=== PATIENT | female | born 1945 | race Caucasian/White ===

== ENCOUNTER 2017-10-04 13:28 | Inpatient (IN) | payer MEDICARE ==
[~2017-10-04] VITALS: Ht 154.9 cm; Wt 64.0 kg
[~2017-10-04 13:28] MED LIST: TENORMIN25 MG PO; TRAMADOL HCL50 MG PO
--- NOTE | 2017-10-04 13:56 | NUR ---
DISCUSSED W/MD REGARDING PT DEFICIT AND HX CVA. MD ADVISED THAT CHANGES ARE THREE DAYS OLD AND PT IS IMPROVING SO NO STROKE ALERT BUT PT TO HAVE CT.
[2017-10-04 13:57] LABS: HEMATOCRIT 35.5 % (37.0-47.0); HEMOGLOBIN 11.7 g/dl (12.0-16.0); IMMATURE GRANULOCYTES 0.6 % (0.0-1.0); MEAN CELL VOLUME 103.5 fL CALC (80.0-100.0); MEAN CORPUSCULAR HGB 34.1 pG CALC (26.0-32.0); NEUT# 9.29 thou/uL (2.00-7.15); RED BLOOD COUNT 3.43 mill/uL (4.20-5.60); RED CELL DISTRI WIDTH 16.9 % (11.5-15.5)
[2017-10-04 14:13] LABS: PROTHROMBIN TIME 11.4 SECONDS (9.0-12.5)
[2017-10-04 14:17] LABS: ALBUMIN 3.5 g/dL (3.2-5.0); BILIRUBIN, TOTAL 1.5 mg/dL (0.0-1.4); CREATININE 1.1 mg/dL (0.5-1.0); POTASSIUM 3.9 mmol/l (3.5-5.1); TOTAL PROTEIN 6.7 g/dL (6.3-8.2)
--- NOTE | 2017-10-04 14:46 | NUR ---
MD AT BEDSIDE DISCUSSING PLAN OF CARE W/PT.
--- NOTE | 2017-10-04 15:30 | NUR ---
BEDRESTING. AWAITING ADMISSION
--- NOTE | 2017-10-04 15:47 | NUR ---
[facility] RESULT IS BASED ON PRIOR RESULTS FROM CVA IN 06/2016 PER PT.
--- NOTE | 2017-10-04 16:50 | NUR ---
ASSISTED PT W/REPOSITIONING. CAP REFILL <3 SEC TO TOES ON RIGHT FOOT. COOLEY BOOT IN PLACE.
[2017-10-04 17:02] LABS: URINE BILIRUBIN - DIPSTICK SMALL (NEGATIVE); URINE BLOOD DIPSTICK TRACE-LYSED (NEGATIVE); URINE CLARITY CLOUDY; URINE COLOR YELLOW; URINE GLUCOSE - DIPSTICK NEGATIVE (NEGATIVE); URINE KETONE TRACE mg/dL (NEGATIVE); URINE LEUK ESTERASE LARGE (NEGATIVE); URINE NITRITE - DIPSTICK NEGATIVE (Negative); URINE PROTEIN - DIPSTICK NEGATIVE (NEG-TRACE); URINE SPECIFIC GRAVITY <=1.005
[2017-10-04 17:15] LABS: URINE BACTERIA MANY hpf; URINE SQUAMOUS EPITHELIAL CELL FEW EPI/hpf (0-FEW); URINE WBC TNTC WBC/hpf (0-5)
--- NOTE | 2017-10-04 17:34 | NUR ---
DR ROMERO IN TO SEE PT. REPORT PROVIDED TO DIANA LAURA, ON MEDSURG. PT TO MEDSURG VIA STRETCHER IN STABLE CONDITION. IV SITE HEALTHY.
--- NOTE | 2017-10-04 17:45 | NUR ---
PT ARRIVED TO FLOOR VIA STRETCHER ACCOMPANIED BY DIANA DIXON. PT TRANSFERED TO BED VIA PULL-OVER BY STAFF X 2. ORTHOPEDIC BOOT TO RIGHT FOOT. RIGHT ARM FLACID. FALL PRECAUTIONS REINFORCED. PT STATES UNDERSTANDING. EXPRESSIVE APHASIA AT TIMES. WORD FINDING DIFFICULTY. FORGETFUL. BED ALARM SET FOR SAFETY. PLAN OF CARE DISCUSSED. CALL LIGHT REVIEWED AND IN REACH. PT STATES UNDERSTANDING.
[2017-10-04 18:16] VITALS: BP 141/74
--- NOTE | 2017-10-04 18:21 | NUR ---
CONSULT CALLED TO DR. MONTEZ.
[2017-10-04 18:30] VITALS: BP 128/77
--- NOTE | 2017-10-04 19:00 | NUR ---
PT RESTING IN BED WATHING TV. PT IS ALERT AND ORIENTED X3 WITH PERIODS OF CONFUSION. PERRLA. RESP ARE EVEN AND UNLABORED. NO DISTRESS NOTED. LUNGS ARE CLEAR. HR REGULAR. PULSES PALPABLE THROUGHOUT. NO EDEMA NOTED. BOOT TO RLE. BS ACTIVE. #20 LAC SALINE LOCKED. NO REDNESS OR EDEMA NOTED. CALL LIGHT IN REACH. BED ALARM ON DUE TO PERIODS OF CONFUSION. RIGHT SIDED HEMIPARESIS NOTED FROM HX OF CVA. WILL CONTINUE TO MONITOR.
--- NOTE | 2017-10-04 19:57 | NUR ---
ANU APPLIED R/T IMMOBILITY AND SKIN PROTECTION.
--- NOTE | 2017-10-04 21:25 | NUR ---
PT TO RADIOLOGY FOR CT VIA WC ACCOMPANIOED BY EDGE GRINDER MACHINE
--- NOTE | 2017-10-04 22:55 | NUR ---
PT RETURNED FROM CT VIA WC. PT ASSISTED BACK TO BED. WILL CONTINUE TO MONITOR
--- NOTE | 2017-10-05 | NUR ---
PT SITTING UP IN BED WATCHING TV. RESP ARE EVEN AND UNLABORED. NO DISTRESS NOTED. CALL LIGHT IN REACH. BED ALARM ON. WILL CONTINUE TO MONITOR
--- NOTE | 2017-10-05 04:00 | NUR ---
PT RESTING IN BED WITH EYES CLOSED. AROUSES EASILY TO VERBAL STIMULI. RESP ARE EVEN AND UNLABORED. NO DISTRESS NOTED. CALL LIGHT IN REACH. BED ALARM ON. CALL LIGHT IN REACH.
[2017-10-05 04:30] VITALS: BP 100/60; BP 149/84
--- NOTE | 2017-10-05 04:30 | NUR ---
BINDER AND BOX BUILDER INTO ROOM TO COMPLETE AM LABS
[2017-10-05 05:20] LABS: HEMATOCRIT 36.6 % (37.0-47.0); HEMOGLOBIN 12.4 g/dl (12.0-16.0); MEAN CELL VOLUME 102.8 fL CALC (80.0-100.0); MEAN CORPUSCULAR HGB 34.8 pG CALC (26.0-32.0); MEAN CORPUSCULAR HGB CONC 33.9 g/L CALC (32.0-36.0); RED BLOOD COUNT 3.56 mill/uL (4.20-5.60); RED CELL DISTRI WIDTH 17.2 % (11.5-15.5)
--- NOTE | 2017-10-05 05:22 | NUR ---
PUREWICK EXTERNAL CATHETER CHANGED AT THIS TIME. DUE TO LARGE AMOUNT OF URINARY INCONTINENCE.
[2017-10-05 05:24] LABS: ANION GAP 15 (6-22 (CALC)); BUN 8 mg/dL (8-23); BUN/CREATININE RATIO 11 (12-20 (CALC)); CARBON DIOXIDE 30 mmol/l (22-30); CHLORIDE 95 mmol/l (95-108); CREATININE 0.7 mg/dL (0.5-1.0); GFR > 60 ML/MIN (>=60 (CALC)); GFR FOR AFR.AMER. > 60 ML/MIN (>=60 (CALC)); POTASSIUM 3.4 mmol/l (3.5-5.1); SODIUM 136 mmol/l (137-146)
--- NOTE | 2017-10-05 07:00 | NUR ---
BEDSIDE REPORT RECEIVED BY KD. PT IS RESTING IN BED WITH NO S/S OF DISTRESS NOTED. PT DENIES NEEDS AT THIS TIME. BEDALARM IN PLACE FOR SAFETY. CALL LIGHT IN REACH.
[2017-10-05 07:38] VITALS: BP 136/80
--- NOTE | 2017-10-05 08:01 | NUR ---
ASSESSMENT DONE PT IS A&O X3 AT THIS TIME. PT DENIES PAIN AT THIS TIME. NS 80ML/HR INFUSING WELL. PUREWICK [place]AS IS IN PLACE WITH YELLOW URINE. RIGHT ARM IS FLACID. BOOT TO RLE. SAFETY PRECAUTIONS REINFORCED AND CALL LIGHT IN REACH.
--- NOTE | 2017-10-05 12:10 | NUR ---
DR. LEAL AT BEDSIDE TO ASSESS PT AND APPLIED A DRESSING ON RIGHT LEG FOR SUPPORT.
--- NOTE | 2017-10-05 12:30 | NUR ---
APPLIED A NEW PURE ARCHIE D[place]AS DUE TO PT TOOK A SHOWER. PT DENIES PAIN AT THIS TIME. NO S/S OF DISTRESS NOTED. CALL LIGHT IN REACH.
[2017-10-05] MEDS ORDERED: LIPITOR10 M1 PO (15:33)
[2017-10-05] MEDS ORDERED: AMLODIPINE2.5 MG PO (15:34)
[2017-10-05] MEDS ORDERED: BACLOFEN10 MG PO (15:34)
[2017-10-05 16:31] VITALS: BP 139/85
--- NOTE | 2017-10-05 16:36 | NUR ---
MEDICATED PT WITH ULTRAM FOR PAIN ON RIGHT LEG 12/16 SEE EMAR. PT DENIES ANY OTHER NEEDS AT THIS TIME. SON IN ROOM. CALL LIGHT IN REACH.
--- NOTE | 2017-10-05 19:00 | NUR ---
PT SITTING UP IN BED WATCHING TV. PT IS ALERT AND ORIENTED X3. PERRLA.PLAN OF CARE REVIEWED WITH PATIENT. SHIFT ASSESSMENT COMPLETED AT THIS TIME. IV PATENT. CALL LIGHT IN REACH. BED ALARM IN PLACE FOR PERIODS OF CONFUSION. WILL CONTINUE TO MONITOR
[2017-10-05 19:10] VITALS: BP 133/77
--- NOTE | 2017-10-05 23:37 | NUR ---
PT RESTING IN BED WITH EYES CLOSED. RESP ARE EVEN AND UNLABORED.NO DISTRESS NOTED. BED ALARM ON. CALL LIGHT IN REACH. WILL CONTINUE TO MONITOR
[2017-10-05 23:50] VITALS: BP 126/63
[2017-10-06 03:20] VITALS: BP 137/77
--- NOTE | 2017-10-06 04:00 | NUR ---
PT RESTING IN BED WITH EYES CLOSED. RESP ARE EVEN AND UNLABORED. NO DISTRESS NOTED. CALL LIGHT IN REACH. WILL CONTINUE TO MONITOR
[2017-10-06 04:58] LABS: HEMATOCRIT 32.7 % (37.0-47.0); HEMOGLOBIN 10.6 g/dl (12.0-16.0); IMMATURE GRANULOCYTES 0.4 % (0.0-1.0); MEAN CELL VOLUME 105.8 fL CALC (80.0-100.0); MEAN CORPUSCULAR HGB 34.3 pG CALC (26.0-32.0); MEAN CORPUSCULAR HGB CONC 32.4 g/L CALC (32.0-36.0); NEUT# 4.22 thou/uL (2.00-7.15); RED BLOOD COUNT 3.09 mill/uL (4.20-5.60); RED CELL DISTRI WIDTH 17.5 % (11.5-15.5)
[2017-10-06 04:59] LABS: ANION GAP 12 (6-22 (CALC)); BUN 7 mg/dL (8-23); BUN/CREATININE RATIO 11 (12-20 (CALC)); CARBON DIOXIDE 27 mmol/l (22-30); CHLORIDE 99 mmol/l (95-108); CREATININE 0.7 mg/dL (0.5-1.0); GFR > 60 ML/MIN (>=60 (CALC)); GFR FOR AFR.AMER. > 60 ML/MIN (>=60 (CALC)); MAGNESIUM 1.3 mg/dL (1.6-2.3); POTASSIUM 3.7 mmol/l (3.5-5.1); SODIUM 135 mmol/l (137-146)
--- NOTE | 2017-10-06 07:33 | NUR ---
SHIFT CHANGE REPORT FROM MIAH, PT AWAKE ALERT AND ORIENTED, TELE MONITOR IN PLACE, DENIES PAIN AT THIS TIME, R.LEG STABILIZED IN CAST, PERIWICK CATHETER IN PLACE TO SUCTION, CALL HAYS IN REACH.
[2017-10-06 08:17] VITALS: BP 128/69
--- NOTE | 2017-10-06 12:34 | NUR ---
RESTING IN BED, USED BEDPAN EFFECTIVELY AFTER WICK REMOVED AND SATURATED LINENS CHANGED, MUSCLE RELAXER GIVEN REQUESTED BY PATIENT OND ORDERED BY MD, ALL NEEDS ADDRESSED, WILL CONTINUE TO MONITOR.
--- NOTE | 2017-10-06 15:00 | NUR ---
PT REFUSED SUPPOSITORY @ 1500 STATING SHE WILL HAVE IT LATER, WILL CONTINUE TO MONITOR, CALL HAYS IN REACH.
--- NOTE | 2017-10-06 15:57 | NUR ---
TRANSFERRED TO [facility] AT THIS TIME AND TRANSPORTED TO MRI BY STAFF.
--- NOTE | 2017-10-06 16:01 | NUR ---
Pt seen this pm (1430) for treatment. She was alert and cooperative. PROM to R extremities except ankle secondary to fx. Pt moved supine to sit with max assist x1. Sitting balance was good, LAQ to LLE and P/AA knee ext on R. Passive stretch to L heel cord. Pt returned to supine with max assist and max assist x2 to move up in bed. Pt positioned properly with call cruz/bed tray in reach, NEUROPSYCHOLOGY SERVICE DIRECTOR with pt.
[2017-10-06 16:14] VITALS: BP 138/62
--- NOTE | 2017-10-06 17:50 | NUR ---
BACK TO UNIT FROM MRI AND SETTLED IN BED, REQUESTING H2O STATING SHE HAD BEEN ADVISED TO DRINK PLENTY DUE TO IV DYE FOR PROCEDURE, WATER IN REACH, WILL CONTINUE TO MONITOR.
--- NOTE | 2017-10-06 19:00 | NUR ---
PT TO RADIOLOGY VIA STRETCHER FOR ECHOCARDIOGRAM. ACCOMPANIED BY MARKETER.
--- NOTE | 2017-10-06 19:11 | NUR ---
PT RETURNED TO FLOOR VIA STRETCHER. PT REFUSED ECHOCADIOGRAM
--- NOTE | 2017-10-06 19:18 | NUR ---
PT TRANSPORTED OFF UNIT FOR PROCEDURE (ECHO) REFUSED STATING SHE HAS BEEN THROUGH ENOUGH TODAY AND WILL NOT TOLERATE ANOTHER 40 MINS FOR THIS PROCEDURE.
--- NOTE | 2017-10-06 19:30 | NUR ---
PT SITTING UP IN BED AWAKE WATCHING TV. PT IS ALERT AND ORIENTED X3. PERRLA. SHIFT ASSESSMENT COMPLETED AT THIS TIME. IV PATENT. PT STATES THAT SHE IS JUST EXHAUSTED AND THAT IS WHY SHE DID NOT WANT TO GET THE ECHO DOEN TONIGHT. DISCUSSED PLAN OF CARE WITH PT. PT VERBALIZED UNDERSTANDING. CALL LIGHT IN REACH. WILL CONTINUE TO MONITOR
[2017-10-06 19:40] VITALS: BP 136/87
--- NOTE | 2017-10-06 20:00 | NUR ---
IV site discontinued, cath intact. No edema , no redness, voices no discomfort.
--- NOTE | 2017-10-07 00:08 | NUR ---
PT RESTING IN BED WITH EYES CLOSED. RESP ARE EVEN AND UNLABORED. IV REMAINS PATENT. CALL LIGHT IN REACH. WILL CONTINUE TO MONITOR
[2017-10-07 03:41] VITALS: BP 128/79
--- NOTE | 2017-10-07 04:00 | NUR ---
PT RESTING IN BED WITH EYES CLOSED. RESP ARE EVEN AND UNLABORED. NO DISTRESS NOTED. CALL LIGHT IN REACH. WILL CONTINUE TO MONITOR
[2017-10-07 05:52] LABS: HEMATOCRIT 37.8 % (37.0-47.0); HEMOGLOBIN 12.2 g/dl (12.0-16.0); IMMATURE GRANULOCYTES 0.4 % (0.0-1.0); MEAN CELL VOLUME 106.2 fL CALC (80.0-100.0); MEAN CORPUSCULAR HGB 34.3 pG CALC (26.0-32.0); MEAN CORPUSCULAR HGB CONC 32.3 g/L CALC (32.0-36.0); NEUT# 4.46 thou/uL (2.00-7.15); RED BLOOD COUNT 3.56 mill/uL (4.20-5.60); RED CELL DISTRI WIDTH 17.2 % (11.5-15.5)
[2017-10-07 06:38] LABS: ANION GAP 12 (6-22 (CALC)); BUN 3 mg/dL (8-23); BUN/CREATININE RATIO 7 (12-20 (CALC)); CARBON DIOXIDE 28 mmol/l (22-30); CHLORIDE 98 mmol/l (95-108); CREATININE 0.5 mg/dL (0.5-1.0); GFR > 60 ML/MIN (>=60 (CALC)); GFR FOR AFR.AMER. > 60 ML/MIN (>=60 (CALC)); POTASSIUM 3.5 mmol/l (3.5-5.1); SODIUM 135 mmol/l (137-146)
--- NOTE | 2017-10-07 07:00 | NUR ---
SHIFT CHANGE FROM MIAH, PT AWAKE ALERT AND ORIENTED, ASSISTED WITH ELIMINATION, PAIN CONCERNS ADDRESSED, CALL HAYS IN REACH.
[2017-10-07 08:29] VITALS: BP 124/59
--- NOTE | 2017-10-07 12:01 | NUR ---
Pt refuse treatment today and stated she did not want to be bothered today at all.
[2017-10-07 12:04] VITALS: BP 133/7
--- NOTE | 2017-10-07 14:19 | NUR ---
RESTING IN BED AT THIS TIME. REPORTED IN SHIFT CHANGE THIS AM, PT CONFORMED SHE REFUSED ECHO SHE HAD HAD TOO MUCH WITH THE MRI AND COULD NOT TOLERATE ANOTHER PROCEDURE BUT STATED SHE WOULD HAVE IT DONE TODAY. SHE ALSO REFUSED PHYSICAL THERAPY TODAY
--- NOTE | 2017-10-07 15:58 | NUR ---
RESTING IN BED, REPORTED SHE HAD A GOOD AFTERNOON NAP AND FEELS MUCH BETTER AT THIS TIME, ALL NEEDS ADDRESSED, CALL HAYS IN REACH.
[2017-10-07 16:49] VITALS: BP 146/79
[2017-10-07 19:25] VITALS: BP 175/88
--- NOTE | 2017-10-07 19:40 | NUR ---
PT RESTING IN BED WATCHING TV. RESP EVEN AND UNLABORED. LUNGS CLEAR BILAT. TELE IN PLACE. ABD SOFT, ACTIVE BOWEL SOUNDS. RIGHT ANKLE CAST IN PLACE, POPLITEAL PULSE PALPATED. LEFT PEDAL PULSE PALPATED. PT REPOSITIONED FOR COMFORT. PT DENIES PAIN. IV LW REMOVED, NEW IV START BY THIS EVP MANAGING DIRECTOR #22 LAC. SAFETY PRECAUTIONS REINFORCED. PT INSTRUCTED TO BE NONWEIGHTBEARING. FREQUENT ROUNDS MADE. CALL LIGHT WITHIN REACH.
[2017-10-07 23:15] VITALS: BP 185/89
[2017-10-08] VITALS (7 sets, daily range): BP systolic 120–169; BP diastolic 62–84
--- NOTE | 2017-10-08 00:36 | NUR ---
PT WOKE FOR VITAL SIGNS. PT DENIES PAIN. RESP EVEN AND UNLABORED. TELE IN PALCE. CALL LIGHT WITHIN REACH.
--- NOTE | 2017-10-08 04:30 | NUR ---
PT AWAKE WATCHING TV. ASSESSMENT UNCHANGED; RESP EVEN AND UNLABORED. TELE IN PLACE. CALL LIGHT WITHIN REACH.
--- NOTE | 2017-10-08 07:00 | NUR ---
SHIFT CHANGE REPORT FROM JOHNSON BRADLEY AWAKE ALERT AND ORIENTED RESTING IN BED, NO C/O DISCOMFORT AT THIS TIME, CALL HAYS IN REACH.
--- NOTE | 2017-10-08 12:00 | NUR ---
RESTING IN BED, ASSISTED WITH ELIMINATION, PAIN CONCERNS ADDRESSED, CALL HAYS IN REACH.
--- NOTE | 2017-10-08 12:21 | NUR ---
HAVING MEAL AT THIS TIME, ALL NEEDS ADDRESSED, CALL HAYS IN REACH.
--- NOTE | 2017-10-08 16:00 | NUR ---
RELAXING WATCHING TV.
--- NOTE | 2017-10-08 20:20 | NUR ---
PT RESTING IN BED WATCHING TV. RESP EVEN AND UNLABORED. TELE IN PLACE. LUNGS CLEAR. ABD SOFT, ACTIVE BOWEL SOUNDS. RIGHT ANKLE CAST IN PLACE, POPLITEAL PULSE PALPATED, LEFT PEDAL PULSE PALPATED. IV LAC PATENT; FLUSHED WITHOUT DIFFICULTY. PLAN OF CARE DISCUSSED. PT INSTRUCTED TO BE NONWEIGHTBEARING. FREQUENT ROUNDS MADE, CALL LIGHT WITHIN REACH.
--- NOTE | 2017-10-09 00:20 | NUR ---
RESP EVEN AND UNLABORED, PT RESTING IN BED WATCHING TV. TELE IN PLACE. CALL LIGHT WITHIN REACH.
--- NOTE | 2017-10-09 04:00 | NUR ---
ASSESSMENT UNCHANGED; RESP EVEN AND UNLABORED. NO DISCOMFORT NOTED. TELE IN PALCE. CALL LIGHT WITHIN REACH.
[2017-10-09 05:15] VITALS: BP 138/78
[2017-10-09 07:39] VITALS: BP 157/71
--- NOTE | 2017-10-09 07:43 | NUR ---
REPORT RECEIVED FROM KOFI BRADLEY. PT SITTING UPRIGHT IN BED. REPORTS RIGHT LEG PAIN. ULTRAM PO ADMINISTERED. PLAN OF CARE DISCUSSED. UPCOMING SX REVIEWED. FALL PRECAUTIONS REINFORCED. CALL LIGHT REVIEWED AND IN REACH. PT STATES UNDERSTANDING.
[2017-10-09 12:00] VITALS: BP 148/76
--- NOTE | 2017-10-09 12:00 | NUR ---
PT SITTING UPRIGHT IN BED. EATING LUNCH. NO COMPLAINTS AT THIS TIME. REPORTS USE OF IS.
[2017-10-09 16:13] VITALS: BP 140/80
--- NOTE | 2017-10-09 16:17 | NUR ---
PT ASSISTED WITH BEDPAN FOR VOIDING. TOLERATED ACTIVITY WELL.
[2017-10-09 18:55] VITALS: BP 123/71
--- NOTE | 2017-10-09 19:21 | NUR ---
PT RESTING IN BED WATCHING TV. RESP EVEN AND UNLABORED. LUNGS CLEAR BILAT. PT ENCOURAGED TO USE INCENTIVE SPIROMETER, PT RETURNED DEMONSTRATION. TELE IN PALCE. ABD SOFT; HYPOACTIVE BOWEL SOUNDS. RIGHT ANKLE SOFT CAST CDI, POPLITEAL PULSE PALPATED. LEFT PEDAL PULSE PALPATED. PT REPOSITIONED FOR COMFORT. IV LAC PATENT; FLUSHED WITHOUT DIFFICULTY. PLAN OF CARE DISCUSSED. SAFETY PRECAUTIONS REINFORCED. FREQUENT ROUNDS MADE. CALL LIGHT WITHIN REACH.
[2017-10-10] VITALS: BP 160/79
--- NOTE | 2017-10-10 00:40 | NUR ---
PT SLEEPING WITH EYES CLOSED. RESP EVEN AND UNLABORED. TELE IN PALCE. CALL LIGHT WITHIN REACH.
--- NOTE | 2017-10-10 04:11 | NUR ---
ASSESSMENT UNCHANGED; PT RESTING IN BED WATCHING TV. RESP EVEN AND UNLABORED. PT REPOSITIONED FOR COMFORT. TELE ON. CALL LIGHT WITHIN REACH.
[2017-10-10 04:15] VITALS: BP 161/78
[2017-10-10 04:49] LABS: HEMATOCRIT 33.7 % (37.0-47.0); IMMATURE GRANULOCYTES 0.5 % (0.0-1.0); MEAN CORPUSCULAR HGB 34.6 pG CALC (26.0-32.0); MEAN CORPUSCULAR HGB CONC 32.6 g/L CALC (32.0-36.0); NEUT# 3.97 thou/uL (2.00-7.15); RED BLOOD COUNT 3.18 mill/uL (4.20-5.60); RED CELL DISTRI WIDTH 16.8 % (11.5-15.5)
[2017-10-10 05:03] LABS: ALKALINE PHOSPHATASE 137 u/l (38-126); BILIRUBIN, TOTAL 0.2 mg/dL (0.0-1.4); BUN 7 mg/dL (8-23); BUN/CREATININE RATIO 13 (12-20 (CALC)); CARBON DIOXIDE 31 mmol/l (22-30); CHLORIDE 96 mmol/l (95-108); CREATININE 0.5 mg/dL (0.5-1.0); GFR > 60 ML/MIN (>=60 (CALC)); GFR FOR AFR.AMER. > 60 ML/MIN (>=60 (CALC)); SGOT/AST 19 u/l (9-36); SGPT/ALT 23 u/l (11-66); SODIUM 136 mmol/l (137-146)
[2017-10-10 05:09] LABS: ANION GAP 14 (6-22 (CALC)); POTASSIUM 4.7 mmol/l (3.5-5.1)
[2017-10-10 05:10] LABS: ALBUMIN 2.4 g/dL (3.2-5.0); TOTAL PROTEIN 5.3 g/dL (6.3-8.2)
--- NOTE | 2017-10-10 07:00 | NUR ---
SHIFT CHANGE REPORT FROM IKRK, PT AWAKE ALERT AND ORIENTED, STATES SHE WANTS TO HAVE HER ECHO DONE TODAY SHE WILL NOT HAVE HER SURGERY TOMORROW IF ECHO NOT DONE. SHE WAS TAKEN OFF UNIT ON 10/07/17 FOR PROCEDURE BUT REFUSED WHEN SHE GOT THERE STATING IT WAS TOO MUCH AND SHE COULD NOT TOLERATE ANOTHER PROCEDURE THAT DAY. ORDER RENEWED AND WILL CONTINUE TO MONITOR, TELE MONITOR IN PLACE AND CALL HAYS IN REACH.
[2017-10-10 08:34] VITALS: BP 149/78
--- NOTE | 2017-10-10 11:41 | NUR ---
ASSISTED WITH ELIMINATION, OTHER NEEDS ADDRESSED, CALL HAYS IN REACH.
[2017-10-10 12:00] VITALS: BP 146/75
--- NOTE | 2017-10-10 12:35 | NUR ---
REFUSED PHYSICAL THERAPY TWICE TODAY FROM 2 DIFFERENT THERAPISTS STATING SHE HAS TO DO AN ECHO TODAY, ALL OTHER NEEDS ADDRESSED, CALL HAYS IN REACH.
--- NOTE | 2017-10-10 12:37 | NUR ---
Attempted treatment at 1230. She was eating lunch and stated she still had to go for test (echo) and she would not want to do anything today. Pt refuse PT at this time.
--- NOTE | 2017-10-10 15:21 | NUR ---
OFFERED MOM BUT REFUSED. ASSISTED WITH BLADDER ELIMINATION, KB-CARE DONE, BACK RUB GIVEN PARTIAL LINEN CHANGE DONE.
[2017-10-10 15:29] VITALS: BP 138/69
--- NOTE | 2017-10-10 15:54 | NUR ---
ATTEMPTED TO TREAT PATIENT LATE THIS AM. SHE STATED THAT SHE HAD JUST HAD HER MUSCLE RELAER MEDICATION AND DID NOT WISH TO BEGIN ANY EXERCISES. SHE IS SCHEDULED TO HAVE SURGERY TOMORROW AND PREFERS TO BE LEFT ALONE TODAY. DISCUSSED THE IMPORTANCE OF MAINTAINING/INCREASING STRENGTH OF LEFT EXTREMITY FOR MAXIMAL REHAB POTENTIAL. PATIENT EXPRESSES UNDERSTANDING OF SAME.
--- NOTE | 2017-10-10 17:35 | NUR ---
TRANSFERRED TO STRETCHER AND DOWN FOR ECHO AT THIS TIME.
--- NOTE | 2017-10-10 18:41 | NUR ---
JUST RETURNED FROM PROCEDURE VIA STRETCHER AND TRANSFERRED TO BED, CALL HAYS IN REACH.
[2017-10-10 19:30] VITALS: BP 153/82
--- NOTE | 2017-10-10 21:00 | NUR ---
PATIENT RESTING IN BED-AWAKE ALERT AND ORIENTEDX3. PATIENT LEFT AC IV SITE LEAKING-SITE D/C'ED WITH CATH INTACT. NEW IV SITE STARTED TO LEFT FOREARM-#22 GAUGE WITH GOOD BLOOD RETURN. PATIENT WITH SPLINT TO RIGHT LE. TOES ARE WARM TO TOUCH. MEDICATED FOR GENERALIZED PAIN WITH ULTRAM 50MG PO. ENCOURAGED USE OF IS Q1H WHILE AWAKE-ABLE TO DEMONSTRATE CORRECT USE OF DEVICE WHEN ASSISTED. PATIENT IS S/P CVA WITH RIGHT SIDE FLACCID. SAFETY PRECAUTIONS REINFORCED. CALL LIGHT IN REACH. WILL CONT TO MONITOR.
[2017-10-11] VITALS (11 sets, daily range): BP systolic 125–152; BP diastolic 51–72
--- NOTE | 2017-10-11 | NUR ---
PATIENT IS NPO FOR OR IN AM. IVF NS HUNG AND INFUSING AT 80CC/HR VIA LEFT FOREARM SITE-SITE APPEARS HEALTHY AT THIS TIME. APPEARS RESTING QUIETLY WITH NO COMPLAINTS AT THIS TIME. SAFETY PRECAUTIONS REINFORCED. CALL LIGHT IN REACH. WILL CONT TO MONITOR.
--- NOTE | 2017-10-11 04:00 | NUR ---
PATIENT RESTING IN BED AND APPEARS SLEEPING AT THIS TIME. IVF PATENT AND INFUSING VIA LEFT FOREARM SITE AT 80CC/HR. CALL LIGHT IN REACH. WILL CONT TO MONITOR.
--- NOTE | 2017-10-11 07:00 | NUR ---
SHIFT CHANGE FROM JOHNSON PAREDES AWAKE ALERT AND ORIENTED RESTING IN BED, TELE MONITOR IN PLACE, ASSISTED WITH BLADDER ELIMINATION AND KB CARE DONE, WILL CONTINUE TO MONITOR , CALL HAYS IN REACH.
--- NOTE | 2017-10-11 09:30 | NUR ---
MARIA FROM OR HERE TO TAKE PT OFF UNIT FOR PROCEDURE, LEAVING AT THIS TIME VIA BED
--- NOTE | 2017-10-11 14:25 | NUR ---
PT ARRIVED ON UNIT IN BED TRANSPORTED BY PACU STAFF AND SETTLED IN ROOM. GROGGY, RESPONSIVE TO NAME BUT DOES NOT ANSWER TO QUESTIONS AT THIS ITME. O2 @ 2L PLACED, TELE MONITOR REPLACED. REPORT RECEIVED FROM BLAS AT BEDSIDE, IVF INFUSING, WILL CONTINUE TO MONITOR AND ASSESS NEEDS, CALL HAYS IN REACH.
--- NOTE | 2017-10-11 16:00 | NUR ---
SLEEPING, LEG ELEVATED ON PILLOWS, O2 @ 2L VIA NC IN PLACE, CALL HAYS IN REACH.
--- NOTE | 2017-10-11 19:05 | NUR ---
REPORT RECEIVED FROM DAY NURSE. PT.IS AWAKE AND JUST NOW EATING CLEAR LIQ DINNER, PT.IS REPORTEDLY TOO GROGGY TO EAT EARLIER, WILL CONTINUE TO MONITOR FOR TOLERATING DIET AND ADVANCE TOLERATED. PT.DENIES ANY PAIN AT THIS TIME. FAMILY IS AT BEDSIDE.
--- NOTE | 2017-10-11 22:35 | NUR ---
PT.MEDICATED W/BACLOFIN SCHEDULED. PT.IS REQUESTING FOOD/SNACK PROVIDED. DENIES ANY OTHER NEEDS. FOOT IS ELEVATED ON 2X PILLOWS AT THIS TIME. NO S/S OF DISTRESS NOTED, TV AND LIGHTS LEFT ON, PT.IN HIGH FOWLERS W/CALL LIGHT AT SIDE.
[2017-10-12 01:02] VITALS: BP 115/65
--- NOTE | 2017-10-12 01:07 | NUR ---
PT.IS SLEEPING AT THIS TIME, AWOKE TO OUR ENTERING THE ROOM, DENIES ANY NEEDS AT THIS TIME, CALL LIGHT AT BEDSIDE AND PT.ENCOURAGED TO CALL IF ANY NEEDS ARISE.
--- NOTE | 2017-10-12 04:08 | NUR ---
PT.HAS BEEN PLACED ON BEDPAN AND MEDICATED FOR PAIN REPORTED 11/15 IN RIGHT ANKLE. PT.LEFT ON BEDPAN REQUESTED AND WE WILL RETURN TO REMOVE.
--- NOTE | 2017-10-12 04:22 | NUR ---
PT.REMOVED FROM BEDPAN, 700CC CLEAR YELLOW URINE EMPTIED FROM [place]. RIGHT FOOT ELEVATED ON 2 PILLOWS. SCD TO LEFT LOWER LEG. PT.CONFUSED TO WHAT TIME OF DAY IT IS, BUT OTHERWISE FOLLOW'S DIRECTIONS AND APPEARS TO BE LOC. DENIES ANY FURTHER NEEDS AT THIS TIME, CALL LIGHT IN REACH.
[2017-10-12 05:01] VITALS: BP 152/84
[2017-10-12 05:27] LABS: HEMOGLOBIN 10.1 g/dl (12.0-16.0); IMMATURE GRANULOCYTES 0.3 % (0.0-1.0); MEAN CELL VOLUME 108.5 fL CALC (80.0-100.0); MEAN CORPUSCULAR HGB 34.2 pG CALC (26.0-32.0); MEAN CORPUSCULAR HGB CONC 31.6 g/L CALC (32.0-36.0); NEUT# 3.95 thou/uL (2.00-7.15); RED BLOOD COUNT 2.95 mill/uL (4.20-5.60)
--- NOTE | 2017-10-12 05:50 | NUR ---
PT.IS SLEEPING SOUNDLY AT THIS TIME, TV AND LIGHTS ARE ON LOW, FOOT ELEVATED ON 2 PILLOWS. NO S/S OF DISTRESS
[2017-10-12 06:14] LABS: ANION GAP 14 (6-22 (CALC)); BUN 7 mg/dL (8-23); BUN/CREATININE RATIO 12 (12-20 (CALC)); CARBON DIOXIDE 26 mmol/l (22-30); CHLORIDE 103 mmol/l (95-108); CREATININE 0.6 mg/dL (0.5-1.0); GFR > 60 ML/MIN (>=60 (CALC)); GFR FOR AFR.AMER. > 60 ML/MIN (>=60 (CALC)); MAGNESIUM 1.7 mg/dL (1.6-2.3); POTASSIUM 4.8 mmol/l (3.5-5.1); SODIUM 138 mmol/l (137-146)
--- NOTE | 2017-10-12 07:00 | NUR ---
SHIFT CHANGE REPORT FROM JOHNSON RAHMAN SLEEPING BUT AWAKENED TO VERBAL STIMULI, ORIENTED, C/O PAIN TO SURGICAL LEG, LEG ELEVATED ON PILLOWS, ICE PACK APPLIED, TELE MONITOR IN PLACE, CALL HAYS IN REACH.
[2017-10-12 07:56] VITALS: BP 159/74
[2017-10-12 12:00] VITALS: BP 153/78
--- NOTE | 2017-10-12 13:37 | NUR ---
PT WAS SEEN RESTING ON BED WITH R LE ELEVATED ON 2 PILLOWS. PT WAS ABLE TO ROLL ON HER R SIDE USING HER L UE STRENGTH TO PULL THE BED RAIL. DID SUPINE TO SHORT SITTING WITH MOD ASSIST. PT TOLERATED SHORT SITTING FOR ~3 MINS. CONSTANTLY COMPLAINING OF PAIN ON R LEG PS 10/10. NURSE CAME IN TO GIVE MEDS TO PT. PT WAS THEN ASSISTED TO RETURN TO SUPINE ON BED WITH MIN A ON REPOSITIONING HER LEGS. USED DRAWSHEET TO REPOSITION/SLIDE UP THE PT ON BED. NO ADVERSE RXNS NOTED OR REPORTED AT THE END OF TX.
[2017-10-12 16:00] VITALS: BP 158/84
[2017-10-12 19:20] VITALS: BP 143/73
--- NOTE | 2017-10-12 19:35 | NUR ---
REPORT RECIEVED; PT RESTING IN BED WATCHING TV. RESP EVEN AND UNLABORED. PT ENCOURAGED TO US IS. PT RETURNED DEMONSTRATION. RIGHT LEG ELEVATED ON 2 PILLOWS. ICE APPLIED. SAFETY PRECAUTIONS REINFORCED. FREQUENT ROUNDS MADE. CALL LIGHT WITHIN REACH.
--- NOTE | 2017-10-12 21:00 | NUR ---
PT RESTING IN BED WATCHING TV. RESP EVEN AND UNLABORED. TELE IN PLACE. LUNGS CLEAR BILAT. ABD SOFT; ACTIVE BOWEL SOUNDS. RIGHT LEG ELEVATED. PT ABLE TO MOVE TOES. DRESSING CDI, BRISK CAPILLARY REFILL. POPLITEAL PULSE PALPATED. LEFT PEDAL PULSE PALPATED. IV LFA PATENT; FLUSHED WITHOUT DIFFICULTY. PT USING IS. CALL LIGHT WITHIN REACH.
--- NOTE | 2017-10-13 | NUR ---
PT SLEEPING WITH EYES CLOSED. RESP EVEN AND UNLABORED. TELE IN PALCE. RT LEG ELEVATED. CALL LIGHT WITHIN REACH.
[2017-10-13 00:49] VITALS: BP 149/85
--- NOTE | 2017-10-13 04:03 | NUR ---
ASSESSMENT UNCHANGED; RESP EVEN AND UNLABORED. TELE IN PLACE. CALL LIGHT WITHIN REACH.
[2017-10-13 05:10] VITALS: BP 146/77
[2017-10-13 05:31] LABS: HEMATOCRIT 32.3 % (37.0-47.0); HEMOGLOBIN 10.1 g/dl (12.0-16.0); IMMATURE GRANULOCYTES 0.3 % (0.0-1.0); MEAN CELL VOLUME 107.3 fL CALC (80.0-100.0); MEAN CORPUSCULAR HGB 33.6 pG CALC (26.0-32.0); MEAN CORPUSCULAR HGB CONC 31.3 g/L CALC (32.0-36.0); NEUT# 3.03 thou/uL (2.00-7.15); RED BLOOD COUNT 3.01 mill/uL (4.20-5.60); RED CELL DISTRI WIDTH 16.5 % (11.5-15.5)
[2017-10-13 05:51] LABS: ANION GAP 12 (6-22 (CALC)); BUN 7 mg/dL (8-23); BUN/CREATININE RATIO 12 (12-20 (CALC)); CARBON DIOXIDE 29 mmol/l (22-30); CHLORIDE 102 mmol/l (95-108); CREATININE 0.6 mg/dL (0.5-1.0); GFR > 60 ML/MIN (>=60 (CALC)); GFR FOR AFR.AMER. > 60 ML/MIN (>=60 (CALC)); MAGNESIUM 1.7 mg/dL (1.6-2.3); POTASSIUM 4.7 mmol/l (3.5-5.1); SODIUM 139 mmol/l (137-146)
--- NOTE | 2017-10-13 07:10 | NUR ---
REPORT RECEIVED FROM KOFI BRADLEY;PT RESTING IN SEMI FOWLERS POSITION;INTRODUCED SELF TO PT AND POC DISCUSSED;PT DENIES ANY CURRENT PAIN OR NEEDS;RESPIRATIONS APPEAR EVEN AND UNLABORED ON RA;ENCOURAGED PT TO CALL FOR ASSISTANCE IF NEEDED;FALL PRECAUTIONS IN PLACE WITH BED IN THE LOWEST POSITION;CALL LIGHT IN REACH;WILL CONTINUE TO MONITOR
--- NOTE | 2017-10-13 09:16 | NUR ---
PT DID SUPINE TO SITTIN G WITH MOD A, ALSO PROVIDED VERBAL CUES TO SLIDE, SCOOT AND HOLD ONTO THE BED RAIL TO PULL SELF UP. PT THEN PERFORMED AAROM EX. ON B UE AND LE. PASSIVE STRETCHING WAS DONE TO R UE AND LE WHILE IN SITTING POSITION. PT C/O PAIN ALL OVER HER BODY AND WAS REQUESTING FOR PAIN MEDS. NURSE TOLD HER THAT SHE JUST HAD IT NOT A WHILE AGO. PT WAS THEN ASSISTED BACK TO SUPINE ON BED WITH MOD A AND VC, PLACED 2 PILLOWS UNDER R LE. LEFT PT W/ CALL HAYS BESIDE HER. NO ADVERSE RXNS NOTED OR REPORTED AT THE END OF TX.
--- NOTE | 2017-10-13 09:30 | NUR ---
PT RESTING IN SEMI FOWLERS POSITION;PT COMPLAINS OF RIGHT ANKLE PAIN RATING 10/10 ON THE PAIN SCALE,PT MEDICATED WITH PERCOCET 10/325MG 1 COMBO PO AT THIS TIME;WILL MONITOR FOR EFFECTIVENESS;VS OBTAINED AND ASSESSMENT COMPLETED;RESPIRATIONS EVEN AND UNLABORED ON RA,DIMINISHED LUNG SOUNDS NOTED;I.S. AT BEDSIDE AND PT INSTRUCTED ON USE 10X PER HOUR WHILE AWAKE;ABDOMEN SOFT ON PALPATION AND ACTIVE IN ALL 4 QUADRANTS;SOFT CAST NOTED TO RIGHT LEG CDI,UNABLE TO PALPATE PULSE;CAP REFILL LESS THAN 3 SECONDS;ICE PACKS PROVIDED AND LEG ELEVATED ON X2 PILLOWS PER ORDER;SCD TO LEFT LEG;TELE MONITOR IN PLACE;#22G TO LEFT FOREARM FLUSHED AND PATENT,SITE APPEARS HEALTHY; PT DENIES ANY CURRENT NEEDS;ENCOURAGED TO CALL FOR ASSISTANCE IF NEEDED;CALL LIGHT IN REACH;WILL CONTINUE TO MONITOR
[2017-10-13 09:31] VITALS: BP 183/82
--- NOTE | 2017-10-13 11:45 | NUR ---
PT RESTING IN SEMI FOWLERS POSITION;PT DENIES ANY CURRENT PAIN;RESPIRATIONS EVEN AND UNLABORED ON RA;TELE MONITOR IN PLACE;RIGHT LEG REMAINS ELEVATED ON X2 PILLOWS;PT DENIES ANY CURRENT NEEDS;ENCOURAGED TO CALL FOR ASSISTANCE IF NEEDED;FALL PRECAUTIONS;WILL CONTINUE TO MONITOR
[2017-10-13 12:30] VITALS: BP 166/75
[2017-10-13] MEDS ORDERED: SURFAK240 MG/CAP PO (12:37)
[2017-10-13] MEDS ORDERED: ADLT ASA LOW81 MG PO (12:37)
[2017-10-13] MEDS ORDERED: XARELTO10 MG PO (12:37)
[2017-10-13] MEDS ORDERED: GLYCOLAX3350 N1 PO (12:37)
[2017-10-13] MEDS ORDERED: PERCOCET 10/31 COMBO PO (12:37)
--- NOTE | 2017-10-13 14:12 | NUR ---
PT RESTING IN SEMI FOWLERS POSITION;DISCHARGE DISCUSSED WITH PT AND NURSE,ALL QUESTIONS ANSWERED;IV SITE REMOVED WITH CATHETER INTACT;PT DENIES ANY CURRENT NEEDS;AWAITING TRANSPORT;WILL CONTINUE TO MONITOR
--- NOTE | 2017-10-13 14:45 | NUR ---
Discharge instructions given. Patient verbalizes understanding of same. Discharged in stable condition via Medical Transport to [facility] with *Other. All belongings sent with pt.
--- NOTE | 2017-10-13 14:59 | NUR ---
REPORT GIVEN TO DIANA GONZALEZ AT [facility]
== END 2017-10-13 14:46 | DRG 493 ==
LOC: ED 13:28 → ED-I 14:24 → ED 14:59 → MS2 15:00
PROVIDERS: Emergency Medicine; Nurse Practitioner; Nurse Practitioner Family; ADMIT Internal Medicine; ATTEND Internal Medicine
PROC: 2W3QX1Z Immobilization of Right Lower Leg using Splint (ICD-10-PCS; 2017-10-05)
PROC: 0QSJ06Z Reposition Right Fibula with Intramedullary Internal Fixation Device, Open Approach (ICD-10-PCS; principal; 2017-10-11)
PROC: 0QSG06Z Reposition Right Tibia with Intramedullary Internal Fixation Device, Open Approach (ICD-10-PCS; 2017-10-11)
DX: S82.841A Displaced bimalleolar fracture of right lower leg, initial encounter for closed fracture (principal); G45.9 Transient cerebral ischemic attack, unspecified; N17.9 Acute kidney failure, unspecified; I69.151 Hemiplegia and hemiparesis following nontraumatic intracerebral hemorrhage affecting right dominant side; E83.42 Hypomagnesemia; I67.82 Cerebral ischemia; N39.0 Urinary tract infection, site not specified; D75.89 Other specified diseases of blood and blood-forming organs; E78.5 Hyperlipidemia, unspecified; E87.6 Hypokalemia; I10 Essential (primary) hypertension; K59.00 Constipation, unspecified; M81.0 Age-related osteoporosis without current pathological fracture; B96.20 Unspecified Escherichia coli [E. coli] as the cause of diseases classified elsewhere; W18.39XA Other fall on same level, initial encounter; Y92.002 Bathroom of unspecified non-institutional (private) residence as the place of occurrence of the external cause; Z99.3 Dependence on wheelchair
CPT/HCPCS: A9579; G0378; J1650; J3475

== ENCOUNTER → 2018-07-11 | Outpatient (REF) | payer MEDICARE ==
[~2018-07-11] MED LIST changes: +ADLT ASA LOW81 MG PO; +AMLODIPINE2.5 MG PO; +BACLOFEN10 MG PO; +GLYCOLAX3350 N1 PO; +LIPITOR10 M1 PO; +PERCOCET 10/31 COMBO PO; +SURFAK240 MG/CAP PO; +XARELTO10 MG PO
[2018-07-11 14:27] LABS: HEMATOCRIT 42.7 % (37.0-47.0); HEMOGLOBIN 13.7 g/dl (12.0-16.0); MEAN CELL VOLUME 97.9 fL CALC (80.0-100.0); MEAN CORPUSCULAR HGB 31.4 pG CALC (26.0-32.0); MEAN CORPUSCULAR HGB CONC 32.1 g/L CALC (32.0-36.0); RED BLOOD COUNT 4.36 mill/uL (4.20-5.60); RED CELL DISTRI WIDTH 13.9 % (11.5-15.5)
[2018-07-11 15:04] LABS: ALKALINE PHOSPHATASE 128 u/l (38-126); ANION GAP 13 (6-22 (CALC)); BILIRUBIN, TOTAL 0.6 mg/dL (0.0-1.4); BUN 15 mg/dL (8-23); BUN/CREATININE RATIO 21 (12-20 (CALC)); CALCULATED LDLCHOLESTEROL 76 mg/dL (62-129 (CALC)); CARBON DIOXIDE 30 mmol/l (22-30); CHLORIDE 103 mmol/l (95-108); CHOLESTEROL HDL RATIO 2.1 (<4.4 (CALC)); CREATININE 0.7 mg/dL (0.5-1.0); GFR > 60 ML/MIN (>=60 (CALC)); GFR FOR AFR.AMER. > 60 ML/MIN (>=60 (CALC)); HDL CHOLESTEROL 77 mg/dL (>=40); POTASSIUM 4.4 mmol/l (3.5-5.1); SGOT/AST 25 u/l (9-36); SODIUM 142 mmol/l (137-146); TOTAL CHOLESTEROL 166 mg/dl (0-199); TOTAL TRIGLYCERIDES 64 mg/dl (30-149); VLDL CHOLESTROL 13 mg/dl (0-48 (CALC))
[2018-07-11 15:15] LABS: ALBUMIN 4.3 g/dL (3.2-5.0); TOTAL PROTEIN 7.3 g/dL (6.3-8.2)
[2018-07-11 15:32] LABS: TSH, 3RD GENERATION 2.77 uIU/mL (0.47 - 4.68)
== END | disposition home or self-care (01) ==
LOC: LAB 12:13
PROVIDERS: ATTEND Nurse Practitioner
DX: E78.5 Hyperlipidemia, unspecified (principal); I10 Essential (primary) hypertension

== ENCOUNTER 2020-12-22 06:43 | Inpatient (IN) | payer MEDICARE ==
[~2020-12-22] VITALS: Ht 154.9 cm; Wt 101.5 kg
--- NOTE | 2020-12-22 06:43 | NUR ---
PT IMMEDIATELY TO ROOM # 10 VIA EMS STRETCHER FOR BEDSIDE TRIAGE
--- NOTE | 2020-12-22 06:55 | NUR ---
RT AT BEDSIDE FOR ABG.
[2020-12-22 08:07] LABS: GFR > 60 ML/MIN (>=60 (CALC)); GFR FOR AFR.AMER. > 60 ML/MIN (>=60 (CALC))
[2020-12-22 08:11] LABS: HEMATOCRIT 38.1 % (37.0-47.0); IMMATURE GRANULOCYTES 0.4 % (0.0-5.0); MEAN CORPUSCULAR HGB 45.9 pG CALC (26.0-32.0); MEAN CORPUSCULAR HGB CONC 34.1 g/dL CAL (32.0-36.0); NEUT# 4.67 thou/uL (2.00-7.15); RED BLOOD COUNT 2.83 mill/uL (4.20-5.60); RED CELL DISTRI WIDTH 17.6 % (11.5-15.5)
[2020-12-22 08:12] LABS: MEAN CELL VOLUME 134.6 fL CALC (80.0-100.0)
--- NOTE | 2020-12-22 08:20 | NUR ---
0710 AT BEDSIDE 0712 STROKE ALERT CALLED 0716 TO RADIOLOGY VIA STRETCHER 0820 RETURN FROM RADIOLOGY VIA STRETCHER.
[2020-12-22 08:30] LABS: ALBUMIN 3.1 g/dL (3.2-5.0); ALKALINE PHOSPHATASE 157 u/l (38-126); BUN 10 mg/dL (8-23); BUN/CREATININE RATIO 17 (12-20 (CALC)); CHLORIDE 91 mmol/l (95-108); CREATININE 0.6 mg/dL (0.5-1.0); POTASSIUM 4.3 mmol/l (3.5-5.1); SGOT/AST 36 u/l (9-36); SODIUM 131 mmol/l (137-146); TOTAL PROTEIN 6.5 g/dL (6.3-8.2)
[2020-12-22 08:32] LABS: ANION GAP 8 (6-22 (CALC)); BILIRUBIN, TOTAL 1.3 mg/dL (0.0-1.4); CARBON DIOXIDE 36 mmol/l (22-30)
[2020-12-22 08:55] LABS: C-REACTIVE PROTEIN 2.6 mg/dL (0-0.9)
[2020-12-22 09:30] LABS: PROTHROMBIN TIME 10.2 SECONDS (9.0-12.5)
[2020-12-22] MEDS ORDERED: NORVASC5 M1 PO (09:51)
[2020-12-22 09:52] LABS: GFR > 60 ML/MIN (>=60 (CALC)); GFR FOR AFR.AMER. > 60 ML/MIN (>=60 (CALC))
[2020-12-22] MEDS ORDERED: ATORVASTATIN CA10 MG PO (09:52)
[2020-12-22] MEDS ORDERED: ASPIRIN81 MG PO (09:52)
[2020-12-22] MEDS ORDERED: BACLOFEN10 MG PO (09:53)
--- NOTE | 2020-12-22 10:03 | NUR ---
MD AT BEDSIDE TO DISCUSS RESULTS AND POC.
--- NOTE | 2020-12-22 11:20 | NUR ---
PT RESTING, BED ASSIGNMENT GIVEN, ATTEMPTED REPORT MIAH ORTIZ BUSY AT THE MOMENT
[2020-12-22 11:39] LABS: URINE BILIRUBIN - DIPSTICK NEGATIVE (NEGATIVE); URINE BLOOD DIPSTICK MODERATE (NEGATIVE); URINE COLOR YELLOW; URINE GLUCOSE - DIPSTICK NEGATIVE (NEGATIVE); URINE KETONE NEGATIVE (NEGATIVE); URINE LEUK ESTERASE TRACE (NEGATIVE); URINE PROTEIN - DIPSTICK NEGATIVE (NEG-TRACE); URINE SPECIFIC GRAVITY <=1.005; URINE UROBILINOGEN - DIPSTICK >=8.0 E.U./dL (0.2)
[2020-12-22] MEDS ORDERED: LOSARTAN POTASS25 MG PO (11:39)
--- NOTE | 2020-12-22 11:43 | NUR ---
Admission Note Report Given to: SBAR PRINTED TO FLOOR Transported by: Wheelchair X Stretcher Transported with: X Nurse Transporter X Patent IV O2 X Director Compensation Location: ICU X [facility]
[2020-12-22 11:46] LABS: URINE NITRITE - DIPSTICK NEGATIVE (Negative)
[2020-12-22 11:48] LABS: URINE SQUAMOUS EPITHELIAL CELL MANY EPI/hpf (0-FEW); URINE WBC 0-2 WBC/hpf (0-5)
[2020-12-22 12:02] VITALS: BP 135/73
--- NOTE | 2020-12-22 12:02 | NUR ---
PT TO ROOM 276 VIA ER STRETCHER ACCOMPANIED BY ER NURSE. PT A MAX ASSIST TO BED X3 STAFF.
--- NOTE | 2020-12-22 12:20 | NUR ---
INTO ROOM FOR ADISSION ASSESSMENT. PUT OFF O2. O2 SAT 82%. PT PLACED ON O2 4L NASAL CANNULA. O2 SATS UP TO 93%. PATIENT HAS 4+ PITTING EDEMA BILATERALLY. PATIENT STATES THAT THIS IS NEW. PATIENT HAS EXPIRATORY WHEEZING. PT IS ALERT AND ORIENTED X3. ORIENTED PT TO ROOM AND UNIT. BRUISING NOTED TO UPPER BACK. BRUISING NOTED TO BUTTOCKS AND COCCYX. EXCORIATION UNDER BILATERAL BREAST. PICTURES OBTAINED FOR CHART. PATIENT DENIES ABUSE OR NEGLECT. [employer] SOLUTION ARCHITECT AND PHYSICIAN NOTIFIED. ORIENTED TO ROOM AND UNIT. CALL LIGHT IN REACH. WILL CONTINUE TO MONITOR.
--- NOTE | 2020-12-22 13:15 | NUR ---
PT SET UP FOR NOON MEAL AT THIS TIME.
[2020-12-22 15:05] VITALS: BP 138/75
--- NOTE | 2020-12-22 15:13 | NUR ---
ER CALLED AND STATED THAT PATIENT HAD A RUN OF VTACH MD NOTIFIED NEW ORDERS RECEIVED.
--- NOTE | 2020-12-22 16:00 | NUR ---
PT MOVED TO ROOM 269 FOR PT SAFETY TO BE CLOSER TO THE NURSES STATION. PT TOLERATED TRANSFER WELL. CALL LIGHT IN REACH. WILL CONTINUE TO MONITOR.
--- NOTE | 2020-12-22 17:35 | NUR ---
LAB AT BEDSIDE AT THIS TIME TO DRAW REPEAT TROPONIN
--- NOTE | 2020-12-22 18:28 | NUR ---
TAIWO KO PHONED FOR UPDATE. UPDATE PROVIDED
--- NOTE | 2020-12-22 18:39 | NUR ---
AIR MATTRESS ORDERED FROM [facility]
[2020-12-22 19:01] VITALS: BP 118/61
--- NOTE | 2020-12-22 20:00 | NUR ---
PHYSICAL ASSESMENT COMPLETE. PT CURRENTLY DENIES PAIN OR DISCOMFORT. SCHEDULED MEDICATIONS AND PRN MEDICATION ADMINISTERED, SEE E-MAR. PT DENIES ANY NEEDS AT THIS TIME. PLAN OF CARE REVIEWED, PT DENIES QUESTIONS, VERBALIZES UNDERSTANDING. ITEMS WITHIN REACH, BED LOCKED IN LOW POSITION W/ BEDRAILS UP X2. CALL HAYS WITHIN REACH, AGREES TO CALL PRN.
[2020-12-22 23:36] VITALS: BP 142/74
--- NOTE | 2020-12-23 | NUR ---
PT LAYING IN BED WITH EYES CLOSED, APPEARS TO BE SLEEPING, APPEARS COMFORTABLE AND IN NO DISTRESS. RESPIRATIONS REGULAR AND UNLABORED. ITEMS REMAIN WITHIN REACH, CALL HAYS REMAINS WITHIN REACH. BED REMAINS LOCKED AND IN LOW POSITION WITH BEDRAILS UP X2. WILL CONTINUE TO MONITOR.
--- NOTE | 2020-12-23 04:01 | NUR ---
PT RESTING IN BED, NO SIGNS OF DISTRESS NOTED, RESP EVEN AND UNLABORED. PT VOICES NO NEEDS OR COMPLAINTS AT THIS TIME. CALL LIGHT IN REACH, CONTINUE TO MONITOR.
[2020-12-23 04:49] VITALS: BP 121/66
[2020-12-23 06:11] LABS: HEMATOCRIT 32.6 % (37.0-47.0); HEMOGLOBIN 11.3 g/dl (12.0-16.0); MEAN CORPUSCULAR HGB 45.7 pG CALC (26.0-32.0); MEAN CORPUSCULAR HGB CONC 34.7 g/dL CAL (32.0-36.0); RED BLOOD COUNT 2.47 mill/uL (4.20-5.60); RED CELL DISTRI WIDTH 17.5 % (11.5-15.5)
[2020-12-23 06:15] LABS: ANION GAP 10 (6-22 (CALC)); BUN 10 mg/dL (8-23); BUN/CREATININE RATIO 16 (12-20 (CALC)); CALCULATED LDLCHOLESTEROL 53 mg/dL (62-129 (CALC)); CARBON DIOXIDE 33 mmol/l (22-30); CHLORIDE 89 mmol/l (95-108); CHOLESTEROL HDL RATIO 1.9 (<4.4 (CALC)); CREATININE 0.7 mg/dL (0.5-1.0); GFR > 60 ML/MIN (>=60 (CALC)); GFR FOR AFR.AMER. > 60 ML/MIN (>=60 (CALC)); HDL CHOLESTEROL 76 mg/dL (>=40); POTASSIUM 4.6 mmol/l (3.5-5.1); SODIUM 127 mmol/l (137-146); TOTAL CHOLESTEROL 143 mg/dl (0-199); TOTAL TRIGLYCERIDES 68 mg/dl (30-149); VLDL CHOLESTROL 14 mg/dl (0-48 (CALC))
[2020-12-23 06:16] LABS: MAGNESIUM 2.3 mg/dL (1.6-2.3)
--- NOTE | 2020-12-23 07:00 | NUR ---
PT REPORT RECEIVED FROM NIGHT NURSEPATRICK
--- NOTE | 2020-12-23 08:00 | NUR ---
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
[2020-12-23 09:00] VITALS: BP 142/69
[2020-12-23 10:56] VITALS: BP 119/52
--- NOTE | 2020-12-23 11:45 | NUR ---
AND CHAD CÁRDENAS AT BEDSIDE DISCUSSING POC WITH PT
--- NOTE | 2020-12-23 12:00 | NUR ---
PT WAS FOUND RESTING COMFORTABLY IN BED EATING LUNCH;DALLAS IS IN PLACE DRAINING CLEAR YELLOW URINE;TELE IS IN PLACE;PT IS NOW ON AIR MATTRESS;O2@3.5L VIA NC IS IN PLACE;NO RESPIRATORY DISTRESS NOTED;SAFETY PRECAUTIONS IN PLACE;CALL LIGHT WITHIN REACH;WILL CONTINUE TO MONITOR.
[2020-12-23 15:00] VITALS: BP 116/63
--- NOTE | 2020-12-23 16:00 | NUR ---
PT WAS FOUND RELAXING IN BED;O2@3.5L VIA NC IS IN PLACE;PT EXPERIENCED SOME BLEEDING FROM HER NOSE SO HUMIDIFIED AIR WAS ADDED FOR COMFORT;PT WAS REPOSITIONED WELL;DALLAS IS DRAINING CLEAR CHAD URINE;#20G IV IN LAC IS RUNNING NS @75ML/HR;IV SITE APPEARS FREE OF COMPLICATIONS AT THIS TIME;SAFETY PRECAUTIONS IN PLACE;CALL LIGHT WITHIN REACH;WILL CONTINUE TO MONITOR.
[2020-12-23 18:45] VITALS: BP 135/73
--- NOTE | 2020-12-23 19:00 | NUR ---
REPORT RECEIVED FROM Dolly JONES RN.
--- NOTE | 2020-12-23 19:42 | NUR ---
PATIENT RESTING IN BED PHYSICAL ASSESMENT COMPLETED A THIS TIME. REGULAR HEAR SOUNDS, TELEMETRY IN PLACE. EXPIRATORY WHEEZES IN UPPER LOBES. EVEN AND UNLABORED RESPIRATION ON 3.5L VIA NC. RIGHT SIDES WEAKNESS NOTED REALTED TO PREVIOUS CVA. 4+PITTING EDEMA NOTED IN LOWER EXTREMITIES AND RIGHT ARM. RIGHT ARM AND BILATERAL LOWER EXTREMITIES ELEVATED. DALLAS IS IN PLACE DRAINING CHAD URINE. UPPER BACK, COCCYX AND BUTTOCKS NOTED TO HAVE BRUISING. EXCORIATION UNDERNEATH BILATERAL BREASTS. #20G IV IN LAC IS RUNNING NS@75ML/HR;IV SITE IS PATENT. DISCUSSED PLAN OF CARE WITH PATIENT, REIFORCED CALL LIGHT USE. CALL LIGHT AND BEDSIDE TABLE WITHIN REACH.
[2020-12-24] VITALS: BP 138/71
--- NOTE | 2020-12-24 | NUR ---
PATIENT WATCHING TV, NO APPARENT DISTRESS NOTED A THIS TIME, CALL LIGHT AND BEDSIDE TABLE WITHIN REACH.
[2020-12-24 04:00] VITALS: BP 134/73
--- NOTE | 2020-12-24 04:00 | NUR ---
PATIENT SLEEPING SOUNDLY, NO APPARENT DISTRESS, CALL LIGHT AND BEDSIDE TABLE WITHIN REACH.
[2020-12-24 05:57] LABS: ANION GAP 7 (6-22 (CALC)); BUN 9 mg/dL (8-23); BUN/CREATININE RATIO 17 (12-20 (CALC)); CARBON DIOXIDE 32 mmol/l (22-30); CHLORIDE 95 mmol/l (95-108); CREATININE 0.5 mg/dL (0.5-1.0); GFR > 60 ML/MIN (>=60 (CALC)); GFR FOR AFR.AMER. > 60 ML/MIN (>=60 (CALC)); POTASSIUM 4.3 mmol/l (3.5-5.1); SODIUM 130 mmol/l (137-146)
[2020-12-24 06:00] LABS: HEMATOCRIT 31.7 % (37.0-47.0); HEMOGLOBIN 10.9 g/dl (12.0-16.0); MEAN CELL VOLUME 133.2 fL CALC (80.0-100.0); MEAN CORPUSCULAR HGB 45.8 pG CALC (26.0-32.0); MEAN CORPUSCULAR HGB CONC 34.4 g/dL CAL (32.0-36.0); RED BLOOD COUNT 2.38 mill/uL (4.20-5.60)
[2020-12-24 07:15] VITALS: BP 142/78
--- NOTE | 2020-12-24 07:15 | NUR ---
PATIENT IN BED ON AIR MATTRESS. PATIENT EXHIBITS RIGHT SIDED WEAKNESS DUE TO PAST STROKE AND HAS NOTED CONTRACTOR OF RIGHT HAND. PATIENT DOES HAVE RIGHT SIDESIDED WEAKNESS AND PARALIZED FROM PREVIOUS STROKE. RIGHT SIDED EDEMA NOTED. BRUSISE ON BOTTOM AND LEGS BILATERALLY. DALLAS PATENT AND DRAINING CHAD URINE. TELE ON AND BEING MONITORED BY ED. SIDERAILS ARE UP CALL LIGHT WITHIN REACH.
[2020-12-24 10:31] VITALS: BP 155/78
--- NOTE | 2020-12-24 11:40 | NUR ---
PATIENT LAYING IN BED AT THIS TIME. DENIES ANY PAIN AT THIS TIME. IV SITE CHANGED DUE TO IV FOUND DISLODGED NEW IV PLACE IN THE R HAND AND #22 GAUGE. IV PLACED BY MAYANK VOLLEYBALL PLAYER. SIDERAILS ARE UP CALL LIGHT WITHIN REACH.
--- NOTE | 2020-12-24 11:48 | NUR ---
PT note The patient is seen for supine to sit trnasfer and NMR for balance in sitting. She made the comment that she has not been taking any muscle relaxers and feels that her tone is exceedingly high compared to her baseline. She did manage to assist with the transfer and with rolling STS although it did take max assist of 1 to accomplish Am Pac score is 9 indicating she would do well in ECF Our plan is to continue funcitnoal mobility
[2020-12-24 15:00] VITALS: BP 144/76
--- NOTE | 2020-12-24 15:28 | NUR ---
PATIENT LAYING IN BED AT THIS TIME. PATIENT DENEIS ANY PAIN. DALLAS REMAINS PATENT AND DRAINING STRAW COLORED URINE AT THIS TIME. TELE REMAINS IN PLACE AND BEING MONITORED BY ED. ANKLES REMAIN EDEMADOUS AT 4+. SIDERAILS ARE UP CALL LIGHT WITHIN REACH.
[2020-12-24 19:00] VITALS: BP 137/75
--- NOTE | 2020-12-24 19:05 | NUR ---
REPORT RECEIVED FROM Paz LAKE RN.
--- NOTE | 2020-12-24 20:00 | NUR ---
PATIENT RESTING IN BED PHYSICAL ASSESMENT COMPLETED A THIS TIME. REGULAR HEART SOUNDS, TELEMETRY IN PLACE. CLEAR LUNG SOUNDS. EVEN AND UNLABORED RESPIRATION ON 2L VIA NC. RIGHT SIDES WEAKNESS NOTED REALTED TO PREVIOUS CVA. 4+PITTING EDEMA NOTED IN LOWER EXTREMITIES AND RIGHT ARM. RIGHT ARM AND BILATERAL LOWER EXTREMITIES ELEVATED. DALLAS IS IN PLACE DRAINING CHAD URINE. UPPER BACK, COCCYX AND BUTTOCKS NOTED TO HAVE BRUISING. EXCORIATION UNDERNEATH BILATERAL BREASTS. #20G IV IN LEFT HAND IS RUNNING NS@75ML/HR;IV SITE IS PATENT. DISCUSSED PLAN OF CARE WITH PATIENT, REIFORCED CALL LIGHT USE. CALL LIGHT AND BEDSIDE TABLE WITHIN REACH.
--- NOTE | 2020-12-24 20:00 | NUR ---
MEDICATIONS ADMINISTERED PER EMAR. SEE EMAR
[2020-12-25] VITALS: BP 137/67
--- NOTE | 2020-12-25 | NUR ---
PATIENT SLEEPING SOUNDLY. CALL LIGHT AND BEDSIDE TABLE WITHIN REACH.
[2020-12-25 04:00] VITALS: BP 154/76
[2020-12-25 05:26] LABS: HEMATOCRIT 32.7 % (37.0-47.0); HEMOGLOBIN 11.3 g/dl (12.0-16.0); MEAN CORPUSCULAR HGB 46.3 pG CALC (26.0-32.0); MEAN CORPUSCULAR HGB CONC 34.6 g/dL CAL (32.0-36.0); RED BLOOD COUNT 2.44 mill/uL (4.20-5.60); RED CELL DISTRI WIDTH 17.8 % (11.5-15.5)
[2020-12-25 05:49] LABS: ANION GAP 9 (6-22 (CALC)); BUN 8 mg/dL (8-23); BUN/CREATININE RATIO 18 (12-20 (CALC)); CARBON DIOXIDE 28 mmol/l (22-30); CHLORIDE 97 mmol/l (95-108); CREATININE 0.4 mg/dL (0.5-1.0); GFR > 60 ML/MIN (>=60 (CALC)); GFR FOR AFR.AMER. > 60 ML/MIN (>=60 (CALC)); MAGNESIUM 1.7 mg/dL (1.6-2.3); POTASSIUM 4.1 mmol/l (3.5-5.1); SODIUM 130 mmol/l (137-146)
[2020-12-25 08:38] VITALS: BP 147/80
--- NOTE | 2020-12-25 09:00 | NUR ---
PT IN BED SITTING UP AWAKE, BED SIDE REPORT RECEIVED. ASSESSMENT COMPLETED NO COMPLAINTS AT THIS TIME.
[2020-12-25 11:17] VITALS: BP 150/84
--- NOTE | 2020-12-25 12:51 | NUR ---
PT SITTING UP IN BED WATHCING TV. STATED MD IS SENDING HER TO REHAB TODAY. WILL CONTINUE TO MONITOR
[2020-12-25] MEDS ORDERED: ASPIRIN REGULA325 M1 PO (13:31)
[2020-12-25] MEDS ORDERED: AZITHROMYCIN500 MG PO (13:31)
[2020-12-25] MEDS ORDERED: OMNICEF300 MG PO (13:31)
--- NOTE | 2020-12-25 14:41 | NUR ---
Pt stated he was going home and did not want therapy at this time.
--- NOTE | 2020-12-25 14:44 | NUR ---
Pt seen treatment this pm, she was with DISC JOCKEY who were working with her. Pt was cooperative with having treatment. AROM to LUE/PROM to RUE and LE as tolerated. Pt was max assist in be mobility and attempts to use LUE to pull on bed rails. Pt move to sit with max assist and mantained sitting with mod assist x1 Pt moved up and bed and positions with heel off loaded and RLE elevated on pillows/fingers extended. Pt left with DISC JOCKEY in room, call cruz in reach. [place] [id number]
[2020-12-25 15:00] VITALS: BP 156/80
--- NOTE | 2020-12-25 16:31 | NUR ---
PT DC VIA TRANSPORT STRETCHER TO CONSULATE REHAB
== END 2020-12-25 19:22 | DRG 193 ==
LOC: ED 06:43 → ED-I 09:50 → ED 10:09 → MS2 10:10
PROVIDERS: Family Medicine; Nurse Practitioner; ADMIT Hospitalist; ATTEND Internal Medicine
DX: J18.9 Pneumonia, unspecified organism (principal); J96.02 Acute respiratory failure with hypercapnia; G45.9 Transient cerebral ischemic attack, unspecified; I69.351 Hemiplegia and hemiparesis following cerebral infarction affecting right dominant side; E87.1 Hypo-osmolality and hyponatremia; I10 Essential (primary) hypertension; R41.0 Disorientation, unspecified; T42.8X5A Adverse effect of antiparkinsonism drugs and other central muscle-tone depressants, initial encounter; E83.42 Hypomagnesemia; E78.5 Hyperlipidemia, unspecified; Z79.01 Long term (current) use of anticoagulants; Z20.822 Contact with and (suspected) exposure to COVID-19
CPT/HCPCS: J3475; Q9967

== ENCOUNTER 2021-05-24 21:59 | Observation (INO) | payer MEDICARE ==
[~2021-05-24] VITALS: Ht 154.9 cm; Wt 100.0 kg
[~2021-05-24 21:59] MED LIST changes: +ASPIRIN REGULA325 M1 PO; +ASPIRIN81 MG PO; +ATORVASTATIN CA10 MG PO; +AZITHROMYCIN500 MG PO; +LOSARTAN POTASS25 MG PO; +NORVASC5 M1 PO; +OMNICEF300 MG PO
--- NOTE | 2021-05-24 22:12 | NUR ---
PT AWARE OF PLAN OF CARE; STATES NO FURTHER ASSISTANCE AT THIS TIME
[2021-05-24 22:32] LABS: HEMATOCRIT 32.3 % (37.0-47.0); HEMOGLOBIN 11.1 g/dl (12.0-16.0); IMMATURE GRANULOCYTES 1.5 % (0.0-5.0); MEAN CELL VOLUME 128.7 fL CALC (80.0-100.0); MEAN CORPUSCULAR HGB 44.2 pG CALC (26.0-32.0); MEAN CORPUSCULAR HGB CONC 34.4 g/dL CAL (32.0-36.0); NEUT# 1.39 thou/uL (2.00-7.15); RED BLOOD COUNT 2.51 mill/uL (4.20-5.60); RED CELL DISTRI WIDTH 18.7 % (11.5-15.5)
[2021-05-24 22:44] LABS: ANION GAP 12 (6-22 (CALC)); BUN 8 mg/dL (8-23); BUN/CREATININE RATIO 12 (12-20 (CALC)); CARBON DIOXIDE 28 mmol/l (22-30); CHLORIDE 94 mmol/l (95-108); CREATININE 0.7 mg/dL (0.5-1.0); GFR > 60 ML/MIN (>=60 (CALC)); GFR FOR AFR.AMER. > 60 ML/MIN (>=60 (CALC)); POTASSIUM 3.5 mmol/l (3.5-5.1); SODIUM 130 mmol/l (137-146)
[2021-05-24 22:52] LABS: URINE BILIRUBIN - DIPSTICK NEGATIVE (NEGATIVE); URINE BLOOD DIPSTICK MODERATE (NEGATIVE); URINE COLOR YELLOW; URINE GLUCOSE - DIPSTICK NEGATIVE (NEGATIVE); URINE KETONE NEGATIVE (NEGATIVE); URINE PROTEIN - DIPSTICK NEGATIVE (NEG-TRACE); URINE SPECIFIC GRAVITY 1.025
[2021-05-24 22:54] LABS: URINE LEUK ESTERASE LARGE (NEGATIVE); URINE NITRITE - DIPSTICK NEGATIVE (Negative)
[2021-05-24 22:58] LABS: URINE BACTERIA FEW hpf; URINE SQUAMOUS EPITHELIAL CELL FEW EPI/hpf (0-FEW); URINE WBC 50-100 WBC/hpf (0-5)
[2021-05-24] MEDS ORDERED: MIRALAX17 GM PO (23:40)
[2021-05-24] MEDS ORDERED: MACRODANTIN100 MG PO (23:40)
--- NOTE | 2021-05-25 01:04 | NUR ---
REPORT REC FROM ED NURSE
--- NOTE | 2021-05-25 01:14 | NUR ---
PT ARRIVED VIA STRETCHER ACCOMPANIED BY Maninder RODRIGUEZ RN AND GRAND DAUGHTER. PT A&O X2 REORIENTED ON CURRENT DATE; POOR HISTORIAN. DIMINISHED BREATH SOUNDS UPON AUSCULTATION; O2 VIA RA SUSTAINING 88-89% PT DENIES ANY DAILY USE OF O2 ALTHOUGH DOES REPORT "HAVING IT AT HOME". O2 VIA NC @2L APPLIED, O2 TO BE MONITORED FOR TITRATION NEEDS. ACTIVE BOWEL SOUNDS X4 QUADRANTS; PT AND GRAND DAUGHTER MENTIONED LAST BM "A WEEK AGO" MAG CITRATE GIVEN IN ED PER REPORTING NURSE. BUTTOCKS REDDENED. FOOT DROP NOTED; [facility] GETS TO THE CHAIR BY "BEING LIFTED". HEEL PROTECTORS APPLIED; LEGS ELEVATED ON 3 PILLOWS PER PTS REQUEST. RT SIDE FLACID DUE TO PREVIOUS STROKE; RT ARM CONTRACTED. #20G LW EMS SITE HEALTHY AND PATENT. ASSESSMENT COMPLETED. DISCUSSED POC. ORIENTED PT TO ROOM. CALL LIGHT WITHIN REACH.
--- NOTE | 2021-05-25 01:15 | NUR ---
Admission Note Report Given to: COLIN ORTIZ Transported by: Wheelchair X Stretcher Transported with: X Nurse Transporter X Patent IV O2 Margarine Maker Location: ICU X MS2
[2021-05-25 04:15] VITALS: BP 119/67
--- NOTE | 2021-05-25 06:00 | NUR ---
BLADDER SCAN PREFORMED AT THIS TIME; RESULTING IN 179 CC OF URINE; TO BE MONITORED FOR URINARY RETENTION. MOM AND PRUNE GIVEN PER PTS REQUEST. CALL LIGHT WITHIN REACH.
[2021-05-25 07:20] VITALS: BP 90/61
--- NOTE | 2021-05-25 07:23 | NUR ---
PT CONSENTED TO PNEUMONIA VAX, HAD PREVNAR IN AND PNEUMONVAX IN 2011. NO FURTHER PNEUMONIA SHOT INDICATED.
--- NOTE | 2021-05-25 07:24 | NUR ---
ASSESSMENT DONE. PATIENT IS ALERT AND ORIENT X2. PATIENT STATED PAIN IN ALL HER BDDY. MEDICATED PATIENT WITH MOTRIN. LEGS ELEVATED IN PILLOW. RIGHT ARM ELEVATED IN PILLOW. PATIENT STATED SHE IS PASSING SOME GAS. SETUP PATIENT FOR BREAKFAST. PATIENT DENIES ANY OTHER NEEDS AT THIS TIME. CALL LIGHT IN REACH.
[2021-05-25] MEDS ORDERED: BACLOFEN10 MG PO (09:20)
[2021-05-25 10:39] VITALS: BP 101/68
--- NOTE | 2021-05-25 11:39 | NUR ---
PATIENT STATED NO BM YET. MEDICATED PATIENT WITH MIRALAX. PATIENT DENEIS ANY OTHER NEEDS AT THIS TIME. CALL LIGHT IN REACH.
[2021-05-25 14:26] VITALS: BP 98/68
--- NOTE | 2021-05-25 15:00 | NUR ---
PATIENT IS RESTING IN BED WITH NO DISTRESS NOTED. BLADDER SCAN PATIENT PER ORDER ONLY 191ML URINE NOTED. PATIENT DENIES NEEDS AT THIS TIME. CALL LIGHT IN REACH.
[2021-05-25] MEDS ORDERED: SENNA-PLUS1 TAB PO (15:15)
--- NOTE | 2021-05-25 18:38 | NUR ---
Discharge instructions given. Patient verbalizes understanding of same. Discharged in stable condition via Medical Transport to Home with staff. All belongings sent with pt.
== END 2021-05-25 18:39 | disposition home health service (06) ==
LOC: ED 21:59 → ED-I 23:50 → ED 05-25 00:12 → MS2 05-25 00:12
PROVIDERS: Family Medicine; ADMIT Internal Medicine; ATTEND Internal Medicine
DX: N39.0 Urinary tract infection, site not specified (principal); K59.00 Constipation, unspecified; E87.1 Hypo-osmolality and hyponatremia; I10 Essential (primary) hypertension; E78.5 Hyperlipidemia, unspecified; I69.951 Hemiplegia and hemiparesis following unspecified cerebrovascular disease affecting right dominant side; E66.9 Obesity, unspecified; Z23 Encounter for immunization; Z68.41 Body mass index [BMI] 40.0-44.9, adult; Z60.2 Problems related to living alone; Z20.822 Contact with and (suspected) exposure to COVID-19
CPT/HCPCS: G0378; J1650

== ENCOUNTER 2021-09-22 08:29 | Observation (INO) | payer MEDICARE, MEDICAID ==
[~2021-09-22] VITALS: Ht 154.9 cm; Wt 76.0 kg
[~2021-09-22 08:29] MED LIST changes: +MACRODANTIN100 MG PO; +MIRALAX17 GM PO; +SENNA-PLUS1 TAB PO
[2021-09-22 09:09] LABS: IMMATURE GRANULOCYTES 0.2 % (0.0-5.0); MEAN CORPUSCULAR HGB 32.5 pG CALC (26.0-32.0); MEAN CORPUSCULAR HGB CONC 32.6 g/dL CAL (32.0-36.0); NEUT# 11.43 thou/uL (2.00-7.15); RED BLOOD COUNT 4.65 mill/uL (4.20-5.60); RED CELL DISTRI WIDTH 17.2 % (11.5-15.5)
[2021-09-22 09:32] LABS: URINE BILIRUBIN - DIPSTICK NEGATIVE (NEGATIVE); URINE BLOOD DIPSTICK MODERATE (NEGATIVE); URINE COLOR YELLOW; URINE GLUCOSE - DIPSTICK NEGATIVE (NEGATIVE); URINE KETONE NEGATIVE (NEGATIVE); URINE PH >=9.0 (4.5-8.0); URINE PROTEIN - DIPSTICK 100 mg/dL (NEG-TRACE); URINE SPECIFIC GRAVITY <=1.005
[2021-09-22 09:35] LABS: URINE LEUK ESTERASE LARGE (NEGATIVE); URINE NITRITE - DIPSTICK NEGATIVE (Negative)
[2021-09-22 09:37] LABS: URINE BACTERIA MANY hpf; URINE EPITHELIAL CELLS FEW EPI/hpf (0-FEW)
[2021-09-22 09:40] LABS: ALBUMIN 2.8 g/dL (3.2-5.0); ALKALINE PHOSPHATASE 152 u/l (38-126); ANION GAP 11 (6-22 (CALC)); BUN 8 mg/dL (8-23); BUN/CREATININE RATIO 14 (12-20 (CALC)); CARBON DIOXIDE 33 mmol/l (22-30); CHLORIDE 89 mmol/l (95-108); CREATININE 0.5 mg/dL (0.5-1.0); GFR FOR AFR.AMER. > 60 ML/MIN (>=60 (CALC)); GFR OTHER RACES > 60 ML/MIN (>=60 (CALC)); SGOT/AST 23 u/l (9-36); SODIUM 129 mmol/l (137-146); TOTAL PROTEIN 5.6 g/dL (6.3-8.2)
[2021-09-22 09:41] LABS: BILIRUBIN, TOTAL 0.6 mg/dL (0.0-1.4)
[2021-09-22 10:08] LABS: HEMATOCRIT 46.3 % (37.0-47.0); HEMOGLOBIN 15.1 g/dl (12.0-16.0); MEAN CELL VOLUME 99.6 fL CALC (80.0-100.0)
[2021-09-22 14:15] VITALS: BP 143/68
[2021-09-22 19:14] VITALS: BP 127/55
[2021-09-23 04:19] VITALS: BP 122/60
[2021-09-23 05:51] LABS: IMMATURE GRANULOCYTES 0.2 % (0.0-5.0); MEAN CELL VOLUME 100.8 fL CALC (80.0-100.0); MEAN CORPUSCULAR HGB 33.1 pG CALC (26.0-32.0); MEAN CORPUSCULAR HGB CONC 32.8 g/dL CAL (32.0-36.0); NEUT# 6.8 thou/uL (2.00-7.15); RED BLOOD COUNT 3.84 mill/uL (4.20-5.60); RED CELL DISTRI WIDTH 17.7 % (11.5-15.5)
[2021-09-23 06:16] LABS: HEMATOCRIT 38.7 % (37.0-47.0); HEMOGLOBIN 12.7 g/dl (12.0-16.0)
[2021-09-23 06:19] LABS: ALKALINE PHOSPHATASE 116 u/l (38-126); ANION GAP 9 (6-22 (CALC)); BUN 8 mg/dL (8-23); BUN/CREATININE RATIO 20 (12-20 (CALC)); CARBON DIOXIDE 30 mmol/l (22-30); CHLORIDE 92 mmol/l (95-108); CREATININE 0.4 mg/dL (0.5-1.0); GFR FOR AFR.AMER. > 60 ML/MIN (>=60 (CALC)); GFR OTHER RACES > 60 ML/MIN (>=60 (CALC)); MAGNESIUM 1.7 mg/dL (1.6-2.3); POTASSIUM 3.6 mmol/l (3.5-5.1); SGOT/AST 23 u/l (9-36); SODIUM 128 mmol/l (137-146); TOTAL PROTEIN 4.5 g/dL (6.3-8.2)
[2021-09-23 06:32] LABS: ALBUMIN 2.1 g/dL (3.2-5.0); BILIRUBIN, TOTAL 0.9 mg/dL (0.0-1.4)
[2021-09-23 06:50] VITALS: BP 136/76
[2021-09-23 08:10] VITALS: BP 132/54; BP 136/76
[2021-09-23 14:19] VITALS: BP 132/54
[2021-09-23 16:00] VITALS: BP 143/63
[2021-09-23 18:48] VITALS: BP 143/63
[2021-09-24 04:57] VITALS: BP 126/50
[2021-09-24 05:59] LABS: HEMATOCRIT 37.2 % (37.0-47.0); HEMOGLOBIN 12.5 g/dl (12.0-16.0); MEAN CELL VOLUME 98.4 fL CALC (80.0-100.0); MEAN CORPUSCULAR HGB 33.1 pG CALC (26.0-32.0); MEAN CORPUSCULAR HGB CONC 33.6 g/dL CAL (32.0-36.0); RED BLOOD COUNT 3.78 mill/uL (4.20-5.60); RED CELL DISTRI WIDTH 17.4 % (11.5-15.5)
[2021-09-24 06:24] LABS: ANION GAP 9 (6-22 (CALC)); BUN 3 mg/dL (8-23); BUN/CREATININE RATIO 9 (12-20 (CALC)); CARBON DIOXIDE 26 mmol/l (22-30); CHLORIDE 100 mmol/l (95-108); CREATININE 0.3 mg/dL (0.5-1.0); GFR FOR AFR.AMER. > 60 ML/MIN (>=60 (CALC)); GFR OTHER RACES > 60 ML/MIN (>=60 (CALC)); MAGNESIUM 1.7 mg/dL (1.6-2.3); POTASSIUM 3.6 mmol/l (3.5-5.1); SODIUM 131 mmol/l (137-146)
[2021-09-24 07:05] VITALS: BP 144/67
[2021-09-24 08:00] VITALS: BP 144/67
[2021-09-24 14:26] VITALS: BP 135/67
[2021-09-24 16:07] VITALS: BP 135/67
[2021-09-24 18:42] VITALS: BP 134/56
[2021-09-25 03:19] VITALS: BP 131/59
[2021-09-25 07:03] VITALS: BP 125/62
[2021-09-25 08:00] VITALS: BP 125/62
[2021-09-25 10:07] LABS: IMMATURE GRANULOCYTES 0.3 % (0.0-5.0); MEAN CELL VOLUME 101.9 fL CALC (80.0-100.0); MEAN CORPUSCULAR HGB 32.3 pG CALC (26.0-32.0); MEAN CORPUSCULAR HGB CONC 31.7 g/dL CAL (32.0-36.0); NEUT# 3.66 thou/uL (2.00-7.15); RED BLOOD COUNT 4.7 mill/uL (4.20-5.60); RED CELL DISTRI WIDTH 17.7 % (11.5-15.5)
[2021-09-25 10:20] LABS: HEMATOCRIT 47.9 % (37.0-47.0); HEMOGLOBIN 15.2 g/dl (12.0-16.0)
[2021-09-25 10:50] LABS: ALBUMIN 2.9 g/dL (3.2-5.0); ALKALINE PHOSPHATASE 143 u/l (38-126); ANION GAP 8 (6-22 (CALC)); BILIRUBIN, TOTAL 0.5 mg/dL (0.0-1.4); BUN 2 mg/dL (8-23); BUN/CREATININE RATIO 7 (12-20 (CALC)); CARBON DIOXIDE 30 mmol/l (22-30); CHLORIDE 99 mmol/l (95-108); CREATININE 0.3 mg/dL (0.5-1.0); GFR FOR AFR.AMER. > 60 ML/MIN (>=60 (CALC)); GFR OTHER RACES > 60 ML/MIN (>=60 (CALC)); POTASSIUM 3.8 mmol/l (3.5-5.1); SGOT/AST 24 u/l (9-36); SODIUM 132 mmol/l (137-146)
[2021-09-25 14:43] VITALS: BP 131/65
[2021-09-25 16:00] VITALS: BP 131/65
[2021-09-25 19:13] VITALS: BP 143/70
[2021-09-26 04:25] VITALS: BP 145/73
[2021-09-26 05:17] LABS: IMMATURE GRANULOCYTES 0.3 % (0.0-5.0); MEAN CORPUSCULAR HGB 32.1 pG CALC (26.0-32.0); MEAN CORPUSCULAR HGB CONC 31.5 g/dL CAL (32.0-36.0); NEUT# 3.78 thou/uL (2.00-7.15); RED BLOOD COUNT 3.92 mill/uL (4.20-5.60); RED CELL DISTRI WIDTH 17.8 % (11.5-15.5)
[2021-09-26 05:38] LABS: HEMOGLOBIN 12.6 g/dl (12.0-16.0)
[2021-09-26 05:39] LABS: ALKALINE PHOSPHATASE 92 u/l (38-126); ANION GAP 7 (6-22 (CALC)); BILIRUBIN, TOTAL 0.4 mg/dL (0.0-1.4); BUN 4 mg/dL (8-23); BUN/CREATININE RATIO 12 (12-20 (CALC)); CARBON DIOXIDE 29 mmol/l (22-30); CHLORIDE 99 mmol/l (95-108); CREATININE 0.4 mg/dL (0.5-1.0); GFR FOR AFR.AMER. > 60 ML/MIN (>=60 (CALC)); GFR OTHER RACES > 60 ML/MIN (>=60 (CALC)); MAGNESIUM 1.6 mg/dL (1.6-2.3); POTASSIUM 4.1 mmol/l (3.5-5.1); SGOT/AST 27 u/l (9-36); SODIUM 131 mmol/l (137-146)
[2021-09-26 05:41] LABS: TOTAL PROTEIN 4.5 g/dL (6.3-8.2)
[2021-09-26 07:27] VITALS: BP 129/60
[2021-09-26 14:40] VITALS: BP 140/71
[2021-09-26 19:24] VITALS: BP 138/61
[2021-09-27 03:43] VITALS: BP 129/65
[2021-09-27 06:34] VITALS: BP 135/60
[2021-09-27 15:30] VITALS: BP 143/66
[2021-09-27 19:15] VITALS: BP 134/71
[2021-09-28] VITALS (7 sets, daily range): BP systolic 127–142; BP diastolic 61–70
[2021-09-28 05:39] LABS: HEMATOCRIT 38.7 % (37.0-47.0); HEMOGLOBIN 12.2 g/dl (12.0-16.0); MEAN CELL VOLUME 102.7 fL CALC (80.0-100.0); MEAN CORPUSCULAR HGB 32.4 pG CALC (26.0-32.0); MEAN CORPUSCULAR HGB CONC 31.5 g/dL CAL (32.0-36.0); RED BLOOD COUNT 3.77 mill/uL (4.20-5.60); RED CELL DISTRI WIDTH 17.9 % (11.5-15.5)
[2021-09-28 06:00] LABS: ANION GAP 7 (6-22 (CALC)); BUN 7 mg/dL (8-23); BUN/CREATININE RATIO 22 (12-20 (CALC)); CARBON DIOXIDE 32 mmol/l (22-30); CHLORIDE 97 mmol/l (95-108); CREATININE 0.3 mg/dL (0.5-1.0); GFR FOR AFR.AMER. > 60 ML/MIN (>=60 (CALC)); GFR OTHER RACES > 60 ML/MIN (>=60 (CALC)); POTASSIUM 3.8 mmol/l (3.5-5.1); SODIUM 131 mmol/l (137-146)
[2021-09-29 05:12] LABS: HEMATOCRIT 39.8 % (37.0-47.0); HEMOGLOBIN 12.5 g/dl (12.0-16.0); IMMATURE GRANULOCYTES 0.5 % (0.0-5.0); MEAN CELL VOLUME 102.8 fL CALC (80.0-100.0); MEAN CORPUSCULAR HGB 32.3 pG CALC (26.0-32.0); MEAN CORPUSCULAR HGB CONC 31.4 g/dL CAL (32.0-36.0); NEUT# 4.59 thou/uL (2.00-7.15); RED BLOOD COUNT 3.87 mill/uL (4.20-5.60); RED CELL DISTRI WIDTH 18.1 % (11.5-15.5)
[2021-09-29 05:31] LABS: ALBUMIN 2.2 g/dL (3.2-5.0); ALKALINE PHOSPHATASE 98 u/l (38-126); ANION GAP 6 (6-22 (CALC)); BILIRUBIN, TOTAL 0.2 mg/dL (0.0-1.4); BUN 7 mg/dL (8-23); BUN/CREATININE RATIO 17 (12-20 (CALC)); CARBON DIOXIDE 34 mmol/l (22-30); CHLORIDE 96 mmol/l (95-108); CREATININE 0.4 mg/dL (0.5-1.0); GFR FOR AFR.AMER. > 60 ML/MIN (>=60 (CALC)); GFR OTHER RACES > 60 ML/MIN (>=60 (CALC)); MAGNESIUM 1.7 mg/dL (1.6-2.3); SGOT/AST 17 u/l (9-36); SODIUM 133 mmol/l (137-146); TOTAL PROTEIN 4.5 g/dL (6.3-8.2)
[2021-09-29 06:21] VITALS: BP 136/61
[2021-09-29 07:06] VITALS: BP 123/55
[2021-09-29 10:41] VITALS: BP 133/55
[2021-09-29 15:04] VITALS: BP 125/54
[2021-09-29 18:50] VITALS: BP 133/60
[2021-09-30 04:23] VITALS: BP 124/62
[2021-09-30 05:25] LABS: HEMATOCRIT 39.1 % (37.0-47.0); HEMOGLOBIN 12.5 g/dl (12.0-16.0); IMMATURE GRANULOCYTES 0.5 % (0.0-5.0); MEAN CELL VOLUME 102.9 fL CALC (80.0-100.0); MEAN CORPUSCULAR HGB 32.9 pG CALC (26.0-32.0); NEUT# 4.62 thou/uL (2.00-7.15); RED BLOOD COUNT 3.8 mill/uL (4.20-5.60); RED CELL DISTRI WIDTH 18.1 % (11.5-15.5)
[2021-09-30 05:44] LABS: ALBUMIN 2.4 g/dL (3.2-5.0); ALKALINE PHOSPHATASE 109 u/l (38-126); ANION GAP 8 (6-22 (CALC)); BILIRUBIN, TOTAL 0.2 mg/dL (0.0-1.4); BUN 7 mg/dL (8-23); BUN/CREATININE RATIO 15 (12-20 (CALC)); CARBON DIOXIDE 32 mmol/l (22-30); CHLORIDE 97 mmol/l (95-108); CREATININE 0.5 mg/dL (0.5-1.0); GFR FOR AFR.AMER. > 60 ML/MIN (>=60 (CALC)); GFR OTHER RACES > 60 ML/MIN (>=60 (CALC)); POTASSIUM 4.3 mmol/l (3.5-5.1); SGOT/AST 19 u/l (9-36); SODIUM 133 mmol/l (137-146); TOTAL PROTEIN 4.9 g/dL (6.3-8.2)
[2021-09-30 08:09] VITALS: BP 137/54
[2021-09-30 08:31] VITALS: BP 137/54
[2021-09-30] MEDS ORDERED: AMOXICILLIN500 M2 PO (09:00)
== END 2021-09-30 12:48 ==
LOC: ED 08:29 → ED-I 11:00 → ED 11:27 → MS2 11:28
PROVIDERS: Emergency Medicine; Nurse Practitioner; ADMIT Internal Medicine; ATTEND Internal Medicine
PROC: 0T2BX0Z Change Drainage Device in Bladder, External Approach (ICD-10-PCS; principal; 2021-09-22)
DX: N39.0 Urinary tract infection, site not specified (principal); I10 Essential (primary) hypertension; E78.5 Hyperlipidemia, unspecified; L89.302 Pressure ulcer of unspecified buttock, stage 2; R09.02 Hypoxemia; E87.1 Hypo-osmolality and hyponatremia; E11.9 Type 2 diabetes mellitus without complications; I69.951 Hemiplegia and hemiparesis following unspecified cerebrovascular disease affecting right dominant side; T83.098A Other mechanical complication of other urinary catheter, initial encounter; E66.01 Morbid (severe) obesity due to excess calories; K59.00 Constipation, unspecified; B96.4 Proteus (mirabilis) (morganii) as the cause of diseases classified elsewhere; B95.2 Enterococcus as the cause of diseases classified elsewhere; B96.89 Other specified bacterial agents as the cause of diseases classified elsewhere; Y84.6 Urinary catheterization as the cause of abnormal reaction of the patient, or of later complication, without mention of misadventure at the time of the procedure; Z68.31 Body mass index [BMI] 31.0-31.9, adult; Z96.0 Presence of urogenital implants; Z74.01 Bed confinement status; Z87.440 Personal history of urinary (tract) infections; Z20.822 Contact with and (suspected) exposure to COVID-19
CPT/HCPCS: J1650

== ENCOUNTER 2022-06-24 17:15 | Inpatient (IN) | payer MEDICARE, MEDICAID ==
[~2022-06-24] VITALS: Ht 154.9 cm; Wt 75.4 kg
[2022-06-24] VITALS (18 sets, daily range): BP systolic 127–153; BP diastolic 64–79
[~2022-06-24 17:15] MED LIST changes: +AMOXICILLIN500 M2 PO
[2022-06-24] MEDS ORDERED: LEVOFLOXACIN750 MG PO (17:34)
[2022-06-24] MEDS ORDERED: DEXAMETHASON0.5 MG PO (17:34)
[2022-06-24] MEDS ORDERED: TRAMADOL HCL50 MG PO (17:35)
--- NOTE | 2022-06-24 17:37 | NUR ---
PT BROUGHT IN VIA EMS
[2022-06-24 18:18] LABS: BASO% 0.3 % (0-3); HEMATOCRIT 39.3 % (37.0-47.0); HEMOGLOBIN 12.6 g/dl (12.0-16.0); LYMPH% 11.7 % (15-41); MEAN CORPUSCULAR HGB 30.4 pG CALC (26.0-32.0); MEAN CORPUSCULAR HGB CONC 32.1 g/dL CAL (32.0-36.0); MONO% 1.9 % (2-13); NEUT# 3.24 thou/uL (2.00-7.15); NEUT% 86.1 % (42-76); RED BLOOD COUNT 4.15 mill/uL (4.20-5.60); RED CELL DISTRI WIDTH 13.4 % (11.5-15.5)
[2022-06-24 18:20] LABS: MEAN CELL VOLUME 94.7 fL CALC (80.0-100.0)
[2022-06-24 18:32] LABS: ALKALINE PHOSPHATASE 101 u/l (38-126); BUN 6 mg/dL (8-23); BUN/CREATININE RATIO 12 (12-20 (CALC)); CARBON DIOXIDE 29 mmol/l (22-30); CHLORIDE 92 mmol/l (95-108); CREATININE 0.5 mg/dL (0.5-1.0); GFR FOR AFR.AMER. > 60 ML/MIN (>=60 (CALC)); GFR OTHER RACES > 60 ML/MIN (>=60 (CALC)); POTASSIUM 4.1 mmol/l (3.5-5.1); SGOT/AST 25 u/l (9-36)
[2022-06-24 18:33] LABS: ALBUMIN 3.3 g/dL (3.2-5.0); ANION GAP 9 (6-22 (CALC)); BILIRUBIN, TOTAL 0.4 mg/dL (0.02-1.3); SODIUM 126 mmol/l (137-146); TOTAL PROTEIN 6.5 g/dL (6.3-8.2)
[2022-06-24 20:01] LABS: URINE BILIRUBIN - DIPSTICK NEGATIVE (NEGATIVE); URINE BLOOD DIPSTICK TRACE-INTACT (NEGATIVE); URINE COLOR YELLOW; URINE GLUCOSE - DIPSTICK NEGATIVE (NEGATIVE); URINE KETONE NEGATIVE (NEGATIVE); URINE PROTEIN - DIPSTICK NEGATIVE (NEG-TRACE); URINE UROBILINOGEN - DIPSTICK 0.2 E.U./dL (0.2)
[2022-06-24 20:04] LABS: URINE LEUK ESTERASE SMALL (NEGATIVE); URINE NITRITE - DIPSTICK POSITIVE (Negative)
[2022-06-24 20:12] LABS: URINE BACTERIA FEW hpf; URINE SQUAMOUS EPITHELIAL CELL FEW EPI/hpf (0-FEW)
--- NOTE | 2022-06-24 22:21 | NUR ---
Admission Note Report Given to: CHELY OTRIZ Transported by: Stretcher Transported with: Nurse Patent IV Scrap Worker Location: [facility] ROOM 280
--- NOTE | 2022-06-24 22:45 | NUR ---
PT ARRIVED TO MS VIA STRETCHER, ACCOMPANIED BY KOFI CRUMP. RECEIVED REPORT FROM CARLOS ER NURSE. PT ORIENTED TO ROOM AND USE OF CALL LIGHT. EVEN AND UNLABORED RESPIRATIONS; WHEEZING AND DIMINISHED LOWER LOBES SOUNDS. RT SIDED PARALYSIS DUE TO PREVIOUS STROKE. DALLAS IN PLACE; TO GRAVITY. SCORIATION TO BUTTOCKS NOTED. REDNESS AND EDEMA TO RLE; PICTURES OBTAINED AND PLACED IN CHART. BED ALARM ACTIVE AND SAFETY PRECAUTIONS IN PLACE. CALL LIGHT IN REACH.
--- NOTE | 2022-06-25 04:00 | NUR ---
PT RESTING ON BED WITH EYES CLOSED. PT TURNED AND REPOSITIONED. NO DISTRESS OR PAIN NOTED. IV SITE INFUSING FLUIDS PER ORDER. SAFETY PRECAUTIONS IN PLACE WITH CALL LIGHT IN REACH.
[2022-06-25 05:25] VITALS: BP 141/66
[2022-06-25 06:00] LABS: IMMATURE GRANULOCYTES 0.2 % (0.0-5.0); MEAN CELL VOLUME 94.4 fL CALC (80.0-100.0); MEAN CORPUSCULAR HGB 30.6 pG CALC (26.0-32.0); MEAN CORPUSCULAR HGB CONC 32.4 g/dL CAL (32.0-36.0); MONO% 6.4 % (2-13); NEUT# 3.97 thou/uL (2.00-7.15); NEUT% 72.4 % (42-76); RED BLOOD COUNT 3.6 mill/uL (4.20-5.60); RED CELL DISTRI WIDTH 13.7 % (11.5-15.5)
[2022-06-25 06:26] LABS: ALKALINE PHOSPHATASE 82 u/l (38-126); ANION GAP 8 (6-22 (CALC)); BUN 6 mg/dL (8-23); BUN/CREATININE RATIO 13 (12-20 (CALC)); CARBON DIOXIDE 28 mmol/l (22-30); CHLORIDE 97 mmol/l (95-108); CREATININE 0.4 mg/dL (0.5-1.0); GFR FOR AFR.AMER. > 60 ML/MIN (>=60 (CALC)); GFR OTHER RACES > 60 ML/MIN (>=60 (CALC)); MAGNESIUM 1.6 mg/dL (1.6-2.3); POTASSIUM 4.2 mmol/l (3.5-5.1); SGOT/AST 19 u/l (9-36); SODIUM 129 mmol/l (137-146)
[2022-06-25 06:31] LABS: ALBUMIN 2.6 g/dL (3.2-5.0); BILIRUBIN, TOTAL 0.2 mg/dL (0.02-1.3); TOTAL PROTEIN 5.1 g/dL (6.3-8.2)
[2022-06-25 06:41] VITALS: BP 125/68
--- NOTE | 2022-06-25 09:08 | NUR ---
PT CANNOT FEED HERSELF, PT NEED SPECTROGRAPH OPERATOR WITH FEEDING. PT LEFT HAND IS SWOLLEN, RIGHT HAND IN A BRACE.
--- NOTE | 2022-06-25 11:02 | NUR ---
CONTACTED [facility] TO ORDER AN AIR MATTRESS (P500) FOR THIS PATIENT. I SPOKE WITH AMBER AT 1102 HRS. CONFIRMATION # [id number]
[2022-06-25 11:07] VITALS: BP 120/57
[2022-06-25 15:35] VITALS: BP 123/51
[2022-06-25 15:36] VITALS: BP 123/51
[2022-06-25 19:08] VITALS: BP 109/47
--- NOTE | 2022-06-25 19:54 | NUR ---
RECEIVED REPORT FROM NIGHTSHIFT NURSE. PT NOTED LAYING IN BED, AIR MATRESS, HIGH FOWLERS. PT IV FLUID WAS NOT CONNECTED AND ANTIBITOTICS SPIKED AND HUNG BUT HAD NOT BEEN ADMINISTERED. IV FLUIDS WERE HOOKED BACK UP AND ANTIBIOTIC BY REPORTING NURSE JINNY. PT DENIES ANY PAIN AT THIS TIME. A/OX2. CALL LIGHT WITHIN REACH AND SAFETYPRECAUTIONS IN PLACE.
[2022-06-26] VITALS (9 sets, daily range): BP systolic 107–140; BP diastolic 43–63
--- NOTE | 2022-06-26 | NUR ---
PT IN BED HIGH FOWLERS, SLEEPING. NO S/S OF DISTRESS. CALL LIGHT WITHIN REACH AND SAFETY PRECAUTIONS IN PLACE.
--- NOTE | 2022-06-26 01:30 | NUR ---
PT TROUGH CAME BACK 22. INFORMED CARDINAL PHARMCIST PAULO OF TROUGH AND LATE DOSE RECEIVED EARLIER. PHARMACIST INFORMED TO STILL GIVE 0100 VANCO DOSE PER EMAR.
--- NOTE | 2022-06-26 04:00 | NUR ---
PT WOKE FROM SLEEP, VERY CONFUSED AND ANXIOUS. TALKED PT DOWN WITH THERAPUTIC COMMUNICATION AND REORIENTED. PT DENIES ANY PAIN AT THIS TIME. REPOSITIONED PT ONTO LEFT SIDE. CALL LIGHT WITHIN REACH AND SAFETY PRECAUTIONS INPLACE.
[2022-06-26 05:26] LABS: HEMATOCRIT 33.7 % (37.0-47.0); HEMOGLOBIN 10.8 g/dl (12.0-16.0); MEAN CELL VOLUME 95.7 fL CALC (80.0-100.0); MEAN CORPUSCULAR HGB 30.7 pG CALC (26.0-32.0); RED BLOOD COUNT 3.52 mill/uL (4.20-5.60); RED CELL DISTRI WIDTH 14.1 % (11.5-15.5)
[2022-06-26 06:01] LABS: ALBUMIN 2.3 g/dL (3.2-5.0); ALKALINE PHOSPHATASE 72 u/l (38-126); ANION GAP 6 (6-22 (CALC)); BUN 8 mg/dL (8-23); BUN/CREATININE RATIO 16 (12-20 (CALC)); CARBON DIOXIDE 28 mmol/l (22-30); CHLORIDE 100 mmol/l (95-108); CREATININE 0.5 mg/dL (0.5-1.0); GFR FOR AFR.AMER. > 60 ML/MIN (>=60 (CALC)); GFR OTHER RACES > 60 ML/MIN (>=60 (CALC)); MAGNESIUM 1.6 mg/dL (1.6-2.3); POTASSIUM 3.4 mmol/l (3.5-5.1); SGOT/AST 20 u/l (9-36); SODIUM 130 mmol/l (137-146); TOTAL PROTEIN 4.7 g/dL (6.3-8.2)
[2022-06-26 06:06] LABS: BILIRUBIN, TOTAL 0.3 mg/dL (0.02-1.3)
--- NOTE | 2022-06-26 08:00 | NUR ---
pt awake in bed; no apparent distress noted; assessment completed at this time; pt alert to person and place; states month as Dec/ year as 2002; pt admits to pain all over rating 7/10; no n/v; resp even and unlabored; hr reg; tele monitor intact; abd soft/ distended with bs present; robert to gravity draining clear yellow urine; #22 patent to niyah with ivf infusing without complication; no redness or edema noted at site; air mattress intact; repositioned per staff; plan of care/ meds explained; call light within reach; bed alarm activated for pt safety; will continue to monitor
--- NOTE | 2022-06-26 08:46 | NUR ---
S: CHARIS OGLESBY is a 77 F who presents with shortness of breath . She has a history of pneumonia and cellulitus. All medications in patient's chart were reviewed. O: VS: BP 129/54, P 76, RR 18,T 97.6 W <104kg>, HT<61 IN>, Scr=<0.05>,CrCl= <ml/min> A: Blood culture <is pending Urine culture <is pending P: Patient is on CEFEPIME 1 GRAM Q12H . Vancomycin ordered for pharmacy to dose. Start Vancomycin 1G IV Q12H. Vancomycin trough is drawn before the 4th dose on 06/28/22 @ 0130. Vancomycin goal trough is between <15-20 mcg/ml>. Pharmacy will follow and or advise on antibiotics use as needed.
--- NOTE | 2022-06-26 12:00 | NUR ---
awake in bed; repositioned high fowlers; fed per media executive Alexia; robert to gravity; tele intact; deny needs; will continue to monitor
--- NOTE | 2022-06-26 12:44 | NUR ---
Dr Gu present at bedside to assess pt and discuss plan of care
--- NOTE | 2022-06-26 13:49 | NUR ---
repositioned to right side; extremities floated on pillows; will continue to monitor
--- NOTE | 2022-06-26 15:43 | NUR ---
Dr Gu notified of episodes of tachycardia; ekg scanned for reviewed; currently, sr/pac 80s on the monitor; will continue to monitor; vs BP 131/66, rr 23, o2 sat 92%,
--- NOTE | 2022-06-26 16:55 | NUR ---
order received from Dr Rivera and placed on chart
--- NOTE | 2022-06-26 17:28 | NUR ---
family present at bedside; update provided; family (daughter Arianne and son in law) requesting air matress (current air mattress at home) or air matress evaluation (home air mattress deflating), flu vaccine, pneumonia vaccine and correlation upon discharge ( will need medical transport and lift assist up stairs).
--- NOTE | 2022-06-26 20:35 | NUR ---
PT IN BED WATCHING TV NO S/S OF DISTRESS NOTED. BREATHING EVEN AND UNLABORED. PT A&OX3. HAS A FELEY CATH IN PLACE, DRAING WELL, URINE IS YELLOW AND CLEAR. PT ON AIR MATRESS. ASSESMENT COMPLETD. CALL LIGHT IN REACH AND BED IN LOWEST POSITION.
--- NOTE | 2022-06-27 00:55 | NUR ---
PT IN BED RESTING WITH EYES CLSOED BREATHING EVEN AND UNLABORED. NO S/S OF DISTRESS NOTED. CALL LIGHT IN REACH AND BED OIN LOWESAT POSITION.
--- NOTE | 2022-06-27 04:23 | NUR ---
PT IN BED RESTING WITH EYES CLSOED BREATHING EVEN AND UNLABORED. NO S/S OF DISTRESS NOTED. CALL LIGHT IN REACH.
[2022-06-27 04:31] VITALS: BP 127/56
[2022-06-27 05:55] LABS: HEMATOCRIT 38.1 % (37.0-47.0); MEAN CELL VOLUME 95.7 fL CALC (80.0-100.0); MEAN CORPUSCULAR HGB 30.2 pG CALC (26.0-32.0); MEAN CORPUSCULAR HGB CONC 31.5 g/dL CAL (32.0-36.0); RED BLOOD COUNT 3.98 mill/uL (4.20-5.60); RED CELL DISTRI WIDTH 14.1 % (11.5-15.5)
[2022-06-27 06:11] LABS: ALBUMIN 2.5 g/dL (3.2-5.0); ALKALINE PHOSPHATASE 77 u/l (38-126); ANION GAP 6 (6-22 (CALC)); BUN 6 mg/dL (8-23); BUN/CREATININE RATIO 14 (12-20 (CALC)); CARBON DIOXIDE 29 mmol/l (22-30); CHLORIDE 98 mmol/l (95-108); CREATININE 0.4 mg/dL (0.5-1.0); GFR FOR AFR.AMER. > 60 ML/MIN (>=60 (CALC)); GFR OTHER RACES > 60 ML/MIN (>=60 (CALC)); MAGNESIUM 1.5 mg/dL (1.6-2.3); POTASSIUM 3.7 mmol/l (3.5-5.1); SGOT/AST 23 u/l (9-36); SODIUM 130 mmol/l (137-146); TOTAL PROTEIN 4.8 g/dL (6.3-8.2)
[2022-06-27 06:21] LABS: BILIRUBIN, TOTAL 0.6 mg/dL (0.02-1.3)
[2022-06-27 06:52] VITALS: BP 135/58
--- NOTE | 2022-06-27 08:00 | NUR ---
SHIFT CHANGE REPORT, PT ALERT AND ORIENTED RESTING IN BED, C/O UNCOMFORTABLE PAIN TO RECTAL AREA, ON ASSESSMENT PT WAS INCONTINENT OF BM, DALLAS CATHETER IN PLACE WITH YELLOW URINE, KB CARE FOR INCONTINENCE B GIVEN AND PT REPOSITIONED, CALL HAYS IN REACH AND BED LOCKED IN LOWEST POSITION.
[2022-06-27 10:14] VITALS: BP 113/51
--- NOTE | 2022-06-27 12:00 | NUR ---
RESTING IN BED, TELE MONITOR IN PLACE, NO NEW COMPLAINS WILL CONTINUE TO MONITOR.
--- NOTE | 2022-06-27 14:55 | NUR ---
IV FOUND DISLODGED AT THIS TIME LYING ON FLOOR, PT UNAWARE OF HOW IT BAECAME DISLODGED.
[2022-06-27 15:01] VITALS: BP 126/63
--- NOTE | 2022-06-27 16:23 | NUR ---
BOTTLE LABEL INSPECTOR REPORTED 4 SEC PAUSE FOLLOWED SB IN 50'S THEN 2 SEC PAUSE FOLLOWED BY NORMAL SR IN 70'S, PT ASYMPTOMATIC ON OBSERVATION, DR ROMERO NOTIFIED, EKG DONE AND COPY SENT TO MD, WILL CONTINUE TO MONITOR.
--- NOTE | 2022-06-27 19:00 | NUR ---
PATIENT ASSEMENT COMPLETED. PATIENT COMPLIAINING OF RECTAL PAIN RELATED TO CONTIPATION. WILL MEDICATE ACCORDINGLY. DALLAS DRAINING CLEAR CHAD URINE TO GRAVITY. CALL LIGHT AND BEDSIDE TABLE WITHIN REACH. BED ALARM ON.
[2022-06-27 19:16] VITALS: BP 132/59
--- NOTE | 2022-06-28 00:30 | NUR ---
PER ED PATIENT HR RUNNING IN 40'S. EKG OBTAINED, UNCLEAR WHETHER EKG REVEALS AFIB. REPEAT REQESTED, REPEAT EKG REVEALED SR/SB.
[2022-06-28 00:38] VITALS: BP 126/58
--- NOTE | 2022-06-28 03:00 | NUR ---
PATIENT CLEANED UP AT THIS TIME. SMALL BM NOTED.
[2022-06-28 04:56] VITALS: BP 144/62
[2022-06-28 05:21] LABS: HEMATOCRIT 36.4 % (37.0-47.0); HEMOGLOBIN 11.9 g/dl (12.0-16.0); MEAN CELL VOLUME 94.3 fL CALC (80.0-100.0); MEAN CORPUSCULAR HGB 30.8 pG CALC (26.0-32.0); MEAN CORPUSCULAR HGB CONC 32.7 g/dL CAL (32.0-36.0); RED BLOOD COUNT 3.86 mill/uL (4.20-5.60); RED CELL DISTRI WIDTH 13.7 % (11.5-15.5)
[2022-06-28 05:41] LABS: ALBUMIN 2.6 g/dL (3.2-5.0); ALKALINE PHOSPHATASE 86 u/l (38-126); ANION GAP 6 (6-22 (CALC)); BUN 4 mg/dL (8-23); BUN/CREATININE RATIO 9 (12-20 (CALC)); CARBON DIOXIDE 31 mmol/l (22-30); CHLORIDE 96 mmol/l (95-108); CREATININE 0.4 mg/dL (0.5-1.0); GFR FOR AFR.AMER. > 60 ML/MIN (>=60 (CALC)); GFR OTHER RACES > 60 ML/MIN (>=60 (CALC)); SGOT/AST 20 u/l (9-36); SODIUM 130 mmol/l (137-146)
[2022-06-28 05:42] LABS: BILIRUBIN, TOTAL 0.9 mg/dL (0.02-1.3); MAGNESIUM 1.9 mg/dL (1.6-2.3)
--- NOTE | 2022-06-28 08:00 | NUR ---
SHIFT CHANGE REPORT, PT AWAKE ALERT AND ORIENTED RESTING IN BED, NO C/O DISCOMFORT AT THIS TIME, O2 @ 2L VIA NC IN PLACE, TELE MONITOR IN PLACE, DALLAS IN PLACE WITH CLEAR YELLOW URINE, CALL HAYS IN REACH AND BED LOCKED IN LOWEST POSITION.
--- NOTE | 2022-06-28 08:38 | NUR ---
S: CHARIS OGLESBY is a 77 F who presents with lower extremity injury/pain. She has a history of PNA and cellulitis. All medications in patient's chart were reviewed. O: VS: BP 144/62, P 57, RR 18,T 97.4 W 104 kg, HT 154.94, Scr= 0.4,CrCl= 50.6ml/min A: Blood culture show P. aeruginosa which is sensitive to cefepime. P: Patient is on cefepime 1g q12 hr. Vancomycin ordered for pharmacy to dose. Start Vancomycin 750mg IV Q12H. Vancomycin trough is drawn before the 4th dose on 06/30/22 at 0430. Vancomycin goal trough is between 15-20 mcg/ml. Pharmacy will follow and or advise on antibiotics use as needed.
[2022-06-28 11:00] VITALS: BP 124/58
--- NOTE | 2022-06-28 12:00 | NUR ---
PT C/O GENERALISED PAIN PERIODICALLY, TYLENOL OFFERED, REPOSITIONED IN BED.
--- NOTE | 2022-06-28 13:29 | NUR ---
PT SCREENED BY GAS SINGER. NO NEED FOR SERVICES AT THIS TIME. CONTACT GAS SINGER IF CONCERNS ARISE.
--- NOTE | 2022-06-28 15:00 | NUR ---
PT C/O RECTAL PAIN, ON ASSESSMENT PT FOUND TO BE INCONTINENT OR LARGE STOOL, KB CARE GIVEN AND PT REPORTS COMPLETE RELIEF FROM PAIN, WILL CONTINUE TO MONITOR.
[2022-06-28 19:02] VITALS: BP 122/55
--- NOTE | 2022-06-28 20:00 | NUR ---
RECEIVED REPORT FROM NURSE RESENDIZ PATIENT RESTING IN BED, CRYING C/O PAIN ON HER BUTTOCKS, PATIENT HAD A BM PASTY SMALL ABOUT, INCONTINENT CARE PROVIDED PRN LORTAB GIVEN, PATIENT ONGOING IV NS @ 10CC/HR INFUSING WELL ON RT HAND, REMAINS ON TELEMETRY, PATIENT IN CONTRACTED ON RT HAND, WEARS HAND SPLINT, MILD REDNESS NOTED ON RT LEG, CALL LIGHT IN REACH.
[2022-06-28 23:31] VITALS: BP 93/48
--- NOTE | 2022-06-28 23:52 | NUR ---
PATIENT RESTING IN BED, EYES CLOSED, BREATHING EVEN UNLABORED, CALL LIGHT IN REACH.
--- NOTE | 2022-06-29 03:46 | NUR ---
PATIENT RESTING IN BED REMAINS ON O2 @ 2LPM VIA NC, BREATHING UNLABORED, CALL LIGHT IN REACH, BED ALARM IN PLACE.
[2022-06-29 04:32] VITALS: BP 136/64
--- NOTE | 2022-06-29 04:32 | NUR ---
pt weighed at this time. pt was raised up on sandro lift with advertising copy writer, nurse and other aide at this time. pt weigh was 75.5 kg on sandro lift. pt weight on air mattress bed read 230 lbs, 104 kg. advertising copy writer zeroed out bed while pt up in air for her weight with air mattress in place. air mattress was also corrected with her correct weight at this time.
[2022-06-29 05:01] LABS: HEMOGLOBIN 11.4 g/dl (12.0-16.0); MEAN CELL VOLUME 96.3 fL CALC (80.0-100.0); MEAN CORPUSCULAR HGB 30.5 pG CALC (26.0-32.0); MEAN CORPUSCULAR HGB CONC 31.7 g/dL CAL (32.0-36.0); RED BLOOD COUNT 3.74 mill/uL (4.20-5.60)
[2022-06-29 05:28] LABS: ALBUMIN 2.7 g/dL (3.2-5.0); ALKALINE PHOSPHATASE 96 u/l (38-126); BUN 7 mg/dL (8-23); BUN/CREATININE RATIO 15 (12-20 (CALC)); CARBON DIOXIDE 35 mmol/l (22-30); CHLORIDE 98 mmol/l (95-108); CREATININE 0.5 mg/dL (0.5-1.0); GFR FOR AFR.AMER. > 60 ML/MIN (>=60 (CALC)); GFR OTHER RACES > 60 ML/MIN (>=60 (CALC)); MAGNESIUM 1.9 mg/dL (1.6-2.3); SGOT/AST 23 u/l (9-36); SODIUM 131 mmol/l (137-146); TOTAL PROTEIN 5.2 g/dL (6.3-8.2)
[2022-06-29 05:41] LABS: ANION GAP 2 (6-22 (CALC)); BILIRUBIN, TOTAL 0.4 mg/dL (0.02-1.3)
[2022-06-29 06:58] VITALS: BP 108/44
--- NOTE | 2022-06-29 08:00 | NUR ---
PT RESTING IN SEMIFOWLER POSTION UPON ENTERING ROOM. TELE MONITOR IN PLACE, CONTINOUS MONITORING PER ED. DALLAS IN PLACE DRAINING URINE VIA GRAVITY SHOWING YELLOW/CLEAR URINE. UPDATED PT ON CURRENT PLAN OF CARE AND MEDICATIONS. ASSESSMENT COMPLETED. PT TOLERATED WELL. FALL/SAFTEY PRECAUTIONS IN PLACE, CALL LIGHT WITHIN REACH.
--- NOTE | 2022-06-29 09:14 | NUR ---
PT COMPLAIN OF PAIN IN BUTTOCKS. REPOSTIONED. MEDICATED. STATES NO OTHER NEEDS AT THIS TIME. FALL/SAFTEY PRECAUITON IN PLACE. CALL LIGHT WITHIN REACH
[2022-06-29 10:26] VITALS: BP 119/39
--- NOTE | 2022-06-29 12:15 | NUR ---
PT EATING LUNCH WITH RECYCLING CREW SUPERVISOR AT BEDSIDE. PT TOLERATING FOOD WELL. NO DISTRESS NOTED. BREATHING EVEN AND UNLABORED. O2 TITRATED TO 1. PT SUSTAINING 95%. FALL/SAFTEY PRECAUTION IN PLACE. CALL LIGHT WITHN REACH
[2022-06-29 15:18] VITALS: BP 112/52
--- NOTE | 2022-06-29 16:00 | NUR ---
PT RESTING IN BED COMPLAINING OF PAIN IN BUTTOCK. MEDICATED. REPOSITIONED. RELAXATION CUES GIVEN. PT DEMONSTRATED UNDERSTANDING. FALL/SAFTEY PRECAUTIO UMAIR PLACE, CALL LIGHT WITHIN REACH. DALLAS IN PLACE, DRAINING URINE VIA GRAVITY. TELE MONITOR IN PLACE, CONTINOUS MONITORING PER ED.
[2022-06-29 18:36] VITALS: BP 105/53
--- NOTE | 2022-06-29 20:20 | NUR ---
PT RESTING ON AIRMATTRESS; A&2 X3. PT TURNED AND REPOSITIONED. VS AND ASSESSMENT COMPLETED. O2 @2L VIA NASAL CANNULA IN PLACE. TELEMETRY IN PLACE. IV SITE HEALTHY AND PATENT. DALLAS IN PLACE TO GRAVITY. RT SIDE PARALYSIS FROM PREVIOUS STROKE. SAFETY PRECAUTIONS IN PLACE WITH CALL LIGHT IN REACH.
[2022-06-29 23:51] VITALS: BP 120/52
--- NOTE | 2022-06-30 | NUR ---
PT RESTING ON BED WITH EYES CLOSED. NO DISTRESS OR PAIN NOTED. IV FLUIDS INFUSING PER ORDER. SAFETY PRECAUTIONS IN PLACE WITH CALL LIGHT IN REACH.
[2022-06-30 04:13] VITALS: BP 122/48
--- NOTE | 2022-06-30 04:15 | NUR ---
PT RESTING ON BED WITH EYES CLOSED. PT TURNED AND REPOSITIONED AT THIS TIME. NO DISTRESS OR PAIN NOTED. IV INFUSING FLUIDS PER ORDER. SAFETY PRECAUTIONS IN PLACE WITH CALL LIGHT IN REACH.
[2022-06-30 05:20] LABS: HEMATOCRIT 36.8 % (37.0-47.0); HEMOGLOBIN 11.4 g/dl (12.0-16.0); MEAN CELL VOLUME 99.2 fL CALC (80.0-100.0); MEAN CORPUSCULAR HGB 30.7 pG CALC (26.0-32.0); RED BLOOD COUNT 3.71 mill/uL (4.20-5.60); RED CELL DISTRI WIDTH 14.2 % (11.5-15.5)
[2022-06-30 05:35] LABS: ALBUMIN 2.5 g/dL (3.2-5.0); ALKALINE PHOSPHATASE 85 u/l (38-126); ANION GAP 3 (6-22 (CALC)); BUN 7 mg/dL (8-23); BUN/CREATININE RATIO 13 (12-20 (CALC)); CARBON DIOXIDE 32 mmol/l (22-30); CHLORIDE 97 mmol/l (95-108); CREATININE 0.5 mg/dL (0.5-1.0); GFR FOR AFR.AMER. > 60 ML/MIN (>=60 (CALC)); GFR OTHER RACES > 60 ML/MIN (>=60 (CALC)); MAGNESIUM 1.7 mg/dL (1.6-2.3); POTASSIUM 3.9 mmol/l (3.5-5.1); SGOT/AST 17 u/l (9-36); SODIUM 128 mmol/l (137-146)
[2022-06-30 05:42] LABS: BILIRUBIN, TOTAL 0.2 mg/dL (0.02-1.3)
[2022-06-30 06:34] VITALS: BP 140/79
--- NOTE | 2022-06-30 08:00 | NUR ---
PT ;AUING IN BED WITH HOB UP, AWAKE AND ALERT. PT HAS TELE ON WITH LEADS ATTACHED. IV SITE TO [facility], PATENT WITH NS@10 ML/HR. O2@2 LITERS ON VIA NC. PT TURNED WHILE IN ROOM, CLEAN AND PROTECTIVE CREAM APPLIES TO BUTTOCKS. DALLAS PATENT AND DRAIING CLEAR, YELLOW URINE. PT HAS CALL LIGHT AT HER SIDE AND ALL SAFETY MEASURES IN PLACE.
[2022-06-30 08:26] VITALS: BP 140/79
--- NOTE | 2022-06-30 09:00 | NUR ---
PT C/O PAIN IN BOTTOM AT 8/10 ON PAIN SCALE. PT MEDICATED OREDRED, WILL REASSESS PAIN.
[2022-06-30] MEDS ORDERED: LASIX 20 MG TAB20 MG PO (10:17)
[2022-06-30] MEDS ORDERED: LOPRESSOR25 MG PO (10:17)
[2022-06-30] MEDS ORDERED: K-TABS10 MEQ PO (10:22)
--- NOTE | 2022-06-30 12:00 | NUR ---
PT LAYING IN BED RESTING AWAKE AND ALERT, PT REPOSTIONED EVERY 2 HOURS. PT IV SITE TO RAC IT INTACT WITH NS @ 10 ML/HR. O2 IS NOT ON AT THIS TIME AND PT IS TOLERATING WELL. DALLAS INTACT AND DRAINING CLEAR YELLOW. CALL LIGHT WITHIN [facility] AND SAFETY MEASURES IN PLACE.
--- NOTE | 2022-06-30 16:00 | NUR ---
PT IN BED RESTING WITH EYES OPEN. PT REPOSITIONED. IV TO THE RAC INTACT WITH NS @ 10ML/HR. PT HAS NO CHANGE IN MENTAL STATUS. DALLAS INTACT AND DRAINING. CALL LIGHT WITHIN REACH AND ALL SAFETY MEASURES IN PLACE.
--- NOTE | 2022-06-30 17:33 | NUR ---
Discharge instructions given. Patient verbalizes understanding of same. Discharged in stable condition via Medical Transport to Home with family. All belongings sent with pt.
--- NOTE | 2022-07-01 16:09 | NUR ---
CONTACTED [facility] IN ORDER TO RETURN THE AIR MATTRESS ASSIGNED TO THIS PATIENT. I SPOKE WITH KANNAN AT 1613 HRS. CONFIRMATION # [id number].
== END 2022-06-30 17:27 | disposition home health service (06) | DRG 194 ==
LOC: ED 17:15 → ED-I 20:30 → MS2 20:45 → ED 20:45 → MS2 20:45
PROVIDERS: Family Medicine; Nurse Practitioner Family; ADMIT Internal Medicine; ATTEND Internal Medicine
PROC: 0T2BX0Z Change Drainage Device in Bladder, External Approach (ICD-10-PCS; principal; 2022-06-24)
DX: J18.9 Pneumonia, unspecified organism (principal); E87.1 Hypo-osmolality and hyponatremia; N39.0 Urinary tract infection, site not specified; L03.115 Cellulitis of right lower limb; L03.116 Cellulitis of left lower limb; I69.351 Hemiplegia and hemiparesis following cerebral infarction affecting right dominant side; I10 Essential (primary) hypertension; E78.5 Hyperlipidemia, unspecified; E11.9 Type 2 diabetes mellitus without complications; K59.00 Constipation, unspecified; T83.028A Displacement of other urinary catheter, initial encounter; E87.6 Hypokalemia; E83.42 Hypomagnesemia; L89.302 Pressure ulcer of unspecified buttock, stage 2; M21.371 Foot drop, right foot; M21.372 Foot drop, left foot; B96.5 Pseudomonas (aeruginosa) (mallei) (pseudomallei) as the cause of diseases classified elsewhere; Y84.6 Urinary catheterization as the cause of abnormal reaction of the patient, or of later complication, without mention of misadventure at the time of the procedure; Z74.01 Bed confinement status
CPT/HCPCS: J0692; J1650; J3475; Q9967

== ENCOUNTER 2022-10-21 16:16 | Emergency (ER) | payer MEDICARE, MEDICAID ==
[~2022-10-21] VITALS: Ht 154.9 cm; Wt 90.0 kg
[2022-10-21] VITALS (9 sets, daily range): BP systolic 120–132; BP diastolic 56–69
[~2022-10-21 16:16] MED LIST changes: +DEXAMETHASON0.5 MG PO; +K-TABS10 MEQ PO; +LASIX 20 MG TAB20 MG PO; +LEVOFLOXACIN750 MG PO; +LOPRESSOR25 MG PO
[2022-10-21 17:18] LABS: URINE BILIRUBIN - DIPSTICK NEGATIVE (NEGATIVE); URINE BLOOD DIPSTICK MODERATE (NEGATIVE); URINE COLOR YELLOW; URINE GLUCOSE - DIPSTICK NEGATIVE (NEGATIVE); URINE KETONE NEGATIVE (NEGATIVE); URINE PH 7.5 (4.5-8.0); URINE PROTEIN - DIPSTICK NEGATIVE (NEG-TRACE); URINE UROBILINOGEN - DIPSTICK 0.2 E.U./dL (0.2)
[2022-10-21 17:26] LABS: URINE LEUK ESTERASE MODERATE (NEGATIVE); URINE NITRITE - DIPSTICK NEGATIVE (Negative)
[2022-10-21 17:36] LABS: URINE SQUAMOUS EPITHELIAL CELL FEW EPI/hpf (0-FEW)
[2022-10-21] MEDS ORDERED: KEFLEX500 MG PO (18:00)
== END 2022-10-21 18:50 | disposition home or self-care (01) ==
LOC: ED 16:16
PROVIDERS: Nurse Practitioner
PROC: 0T2BX0Z Change Drainage Device in Bladder, External Approach (ICD-10-PCS; principal; 2022-10-21)
DX: N39.0 Urinary tract infection, site not specified (principal); L03.115 Cellulitis of right lower limb; L03.116 Cellulitis of left lower limb; I10 Essential (primary) hypertension; E11.9 Type 2 diabetes mellitus without complications; R35.0 Frequency of micturition; I69.998 Other sequelae following unspecified cerebrovascular disease; R60.9 Edema, unspecified; Z74.01 Bed confinement status; Z96.0 Presence of urogenital implants

== ENCOUNTER 2022-11-02 13:31 | Inpatient (IN) | payer MEDICARE, MEDICAID ==
[2022-11-02] VITALS (24 sets, daily range): BP systolic 88–161; BP diastolic 52–94
[~2022-11-02] VITALS: Ht 154.9 cm; Wt 82.5 kg
[~2022-11-02 13:31] MED LIST changes: +KEFLEX500 MG PO
[2022-11-02 15:05] LABS: HEMOGLOBIN 12.2 g/dl (12.0-16.0); IMMATURE GRANULOCYTES 0.2 % (0.0-5.0); PLATELET COUNT 411 thou/uL (130-400); RED BLOOD COUNT 4.06 mill/uL (4.20-5.60); RED CELL DISTRI WIDTH 13.8 % (11.5-15.5)
[2022-11-02 15:18] LABS: ALBUMIN 2.3 g/dL (3.2-5.0); ALKALINE PHOSPHATASE 163 u/l (38-126); ANION GAP 4 (6-22 (CALC)); BILIRUBIN, TOTAL 0.9 mg/dL (0.02-1.3); BUN 4 mg/dL (8-23); BUN/CREATININE RATIO 9 (12-20 (CALC)); CARBON DIOXIDE 35 mmol/l (22-30); CHLORIDE 89 mmol/l (95-108); CREATININE 0.4 mg/dL (0.5-1.0); GFR FOR AFR.AMER. > 60 ML/MIN (>=60 (CALC)); GFR OTHER RACES > 60 ML/MIN (>=60 (CALC)); MEAN CELL VOLUME 91.1 fL CALC (80.0-100.0); POTASSIUM 2.7 mmol/l (3.5-5.1); SGOT/AST 26 u/l (9-36); SODIUM 125 mmol/l (137-146)
[2022-11-02 15:27] LABS: BAND 4 % (0-8); MANUAL DIFFERENTIAL YES
[2022-11-02 16:23] LABS: URINE BILIRUBIN - DIPSTICK NEGATIVE (NEGATIVE); URINE BLOOD DIPSTICK TRACE-INTACT (NEGATIVE); URINE COLOR YELLOW; URINE GLUCOSE - DIPSTICK NEGATIVE (NEGATIVE); URINE KETONE NEGATIVE (NEGATIVE); URINE PROTEIN - DIPSTICK TRACE mg/dL (NEG-TRACE); URINE SPECIFIC GRAVITY 1.015; URINE UROBILINOGEN - DIPSTICK 0.2 E.U./dL (0.2)
[2022-11-02 16:30] LABS: URINE LEUK ESTERASE MODERATE (NEGATIVE); URINE NITRITE - DIPSTICK NEGATIVE (Negative)
[2022-11-02 16:31] LABS: URINE SQUAMOUS EPITHELIAL CELL FEW EPI/hpf (0-FEW); URINE YEAST MANY hpf
[2022-11-02] MEDS ORDERED: BACLOFEN10 MG PO (19:34)
[2022-11-02] MEDS ORDERED: MELATONIN3 M1 PO (19:35)
[2022-11-03] VITALS (8 sets, daily range): BP systolic 121–145; BP diastolic 60–69
[2022-11-03 05:51] LABS: BASO% 0.2 % (0-3); EOS% 0.5 % (0-8); HEMATOCRIT 32.4 % (37.0-47.0); HEMOGLOBIN 10.5 g/dl (12.0-16.0); IMMATURE GRANULOCYTES 0.1 % (0.0-5.0); LYMPH% 9.9 % (15-41); MEAN CELL VOLUME 93.1 fL CALC (80.0-100.0); MEAN CORPUSCULAR HGB 30.2 pG CALC (26.0-32.0); MEAN CORPUSCULAR HGB CONC 32.4 g/dL CAL (32.0-36.0); MONO% 4.9 % (2-13); NEUT# 22.53 thou/uL (2.00-7.15); NEUT% 84.4 % (42-76); RED BLOOD COUNT 3.48 mill/uL (4.20-5.60); RED CELL DISTRI WIDTH 13.8 % (11.5-15.5)
[2022-11-03 06:14] LABS: ALKALINE PHOSPHATASE 194 u/l (38-126); ANION GAP 5 (6-22 (CALC)); BILIRUBIN, TOTAL 0.9 mg/dL (0.02-1.3); BUN 3 mg/dL (8-23); BUN/CREATININE RATIO 7 (12-20 (CALC)); CARBON DIOXIDE 33 mmol/l (22-30); CHLORIDE 93 mmol/l (95-108); CREATININE 0.5 mg/dL (0.5-1.0); GFR FOR AFR.AMER. > 60 ML/MIN (>=60 (CALC)); GFR OTHER RACES > 60 ML/MIN (>=60 (CALC)); POTASSIUM 2.5 mmol/l (3.5-5.1); SGOT/AST 24 u/l (9-36); SODIUM 127 mmol/l (137-146); TOTAL PROTEIN 4.3 g/dL (6.3-8.2)
[2022-11-04] VITALS (7 sets, daily range): BP systolic 110–165; BP diastolic 48–58
[2022-11-04 05:35] LABS: BASO% 0.1 % (0-3); EOS% 2.1 % (0-8); HEMATOCRIT 34.5 % (37.0-47.0); HEMOGLOBIN 10.8 g/dl (12.0-16.0); IMMATURE GRANULOCYTES 0.3 % (0.0-5.0); LYMPH% 10.4 % (15-41); MEAN CELL VOLUME 96.4 fL CALC (80.0-100.0); MEAN CORPUSCULAR HGB 30.2 pG CALC (26.0-32.0); MEAN CORPUSCULAR HGB CONC 31.3 g/dL CAL (32.0-36.0); MONO% 5.3 % (2-13); NEUT# 17.2 thou/uL (2.00-7.15); NEUT% 81.8 % (42-76); RED BLOOD COUNT 3.58 mill/uL (4.20-5.60); RED CELL DISTRI WIDTH 14.2 % (11.5-15.5)
[2022-11-04 06:03] LABS: ALBUMIN 1.8 g/dL (3.2-5.0); ALKALINE PHOSPHATASE 113 u/l (38-126); BILIRUBIN, TOTAL 0.7 mg/dL (0.02-1.3); BUN 3 mg/dL (8-23); BUN/CREATININE RATIO 7 (12-20 (CALC)); CHLORIDE 95 mmol/l (95-108); CREATININE 0.4 mg/dL (0.5-1.0); GFR FOR AFR.AMER. > 60 ML/MIN (>=60 (CALC)); GFR OTHER RACES > 60 ML/MIN (>=60 (CALC)); SGOT/AST 23 u/l (9-36); SODIUM 125 mmol/l (137-146); TOTAL PROTEIN 4.3 g/dL (6.3-8.2)
[2022-11-04 06:04] LABS: ANION GAP 8 (6-22 (CALC)); CARBON DIOXIDE 25 mmol/l (22-30); MAGNESIUM 1.9 mg/dL (1.6-2.3); POTASSIUM 3.4 mmol/l (3.5-5.1)
[2022-11-05] VITALS (7 sets, daily range): BP systolic 104–139; BP diastolic 44–65
[2022-11-05 05:15] LABS: BASO% 0.2 % (0-3); EOS% 1.6 % (0-8); HEMATOCRIT 34.2 % (37.0-47.0); HEMOGLOBIN 11.3 g/dl (12.0-16.0); IMMATURE GRANULOCYTES 0.2 % (0.0-5.0); LYMPH% 14.2 % (15-41); MEAN CELL VOLUME 91.7 fL CALC (80.0-100.0); MEAN CORPUSCULAR HGB 30.3 pG CALC (26.0-32.0); NEUT# 16.99 thou/uL (2.00-7.15); NEUT% 76.8 % (42-76); RED BLOOD COUNT 3.73 mill/uL (4.20-5.60); RED CELL DISTRI WIDTH 13.8 % (11.5-15.5)
[2022-11-05 05:32] LABS: ALBUMIN 1.9 g/dL (3.2-5.0); ALKALINE PHOSPHATASE 126 u/l (38-126); BILIRUBIN, TOTAL 0.8 mg/dL (0.02-1.3); BUN 3 mg/dL (8-23); BUN/CREATININE RATIO 5 (12-20 (CALC)); CHLORIDE 92 mmol/l (95-108); CREATININE 0.5 mg/dL (0.5-1.0); GFR FOR AFR.AMER. > 60 ML/MIN (>=60 (CALC)); GFR OTHER RACES > 60 ML/MIN (>=60 (CALC)); SGOT/AST 19 u/l (9-36); SODIUM 125 mmol/l (137-146); TOTAL PROTEIN 4.4 g/dL (6.3-8.2)
[2022-11-05 05:33] LABS: ANION GAP 5 (6-22 (CALC)); CARBON DIOXIDE 31 mmol/l (22-30); MAGNESIUM 1.4 mg/dL (1.6-2.3)
[2022-11-06 05:28] LABS: BASO% 0.2 % (0-3); EOS% 2.5 % (0-8); HEMATOCRIT 33.1 % (37.0-47.0); HEMOGLOBIN 10.8 g/dl (12.0-16.0); IMMATURE GRANULOCYTES 0.2 % (0.0-5.0); LYMPH% 16.4 % (15-41); MEAN CELL VOLUME 91.7 fL CALC (80.0-100.0); MEAN CORPUSCULAR HGB 29.9 pG CALC (26.0-32.0); MEAN CORPUSCULAR HGB CONC 32.6 g/dL CAL (32.0-36.0); MONO% 7.5 % (2-13); NEUT# 14.05 thou/uL (2.00-7.15); NEUT% 73.2 % (42-76); RED BLOOD COUNT 3.61 mill/uL (4.20-5.60); RED CELL DISTRI WIDTH 13.8 % (11.5-15.5)
[2022-11-06 05:40] LABS: ALBUMIN 1.8 g/dL (3.2-5.0); ALKALINE PHOSPHATASE 112 u/l (38-126); ANION GAP 4 (6-22 (CALC)); BILIRUBIN, TOTAL 0.6 mg/dL (0.02-1.3); BUN 3 mg/dL (8-23); BUN/CREATININE RATIO 5 (12-20 (CALC)); CARBON DIOXIDE 32 mmol/l (22-30); CHLORIDE 93 mmol/l (95-108); CREATININE 0.5 mg/dL (0.5-1.0); GFR FOR AFR.AMER. > 60 ML/MIN (>=60 (CALC)); GFR OTHER RACES > 60 ML/MIN (>=60 (CALC)); MAGNESIUM 1.6 mg/dL (1.6-2.3); POTASSIUM 2.8 mmol/l (3.5-5.1); SGOT/AST 16 u/l (9-36); SODIUM 126 mmol/l (137-146)
[2022-11-06 08:04] VITALS: BP 112/59
[2022-11-06 12:09] VITALS: BP 117/63
[2022-11-06 15:46] VITALS: BP 108/60
[2022-11-06 21:08] VITALS: BP 101/61
[2022-11-06 23:39] VITALS: BP 101/65
[2022-11-07 05:08] VITALS: BP 123/53
[2022-11-07 05:31] LABS: BASO% 0.4 % (0-3); EOS% 4.8 % (0-8); HEMATOCRIT 31.8 % (37.0-47.0); HEMOGLOBIN 10.3 g/dl (12.0-16.0); IMMATURE GRANULOCYTES 0.4 % (0.0-5.0); LYMPH% 24.1 % (15-41); MEAN CELL VOLUME 91.9 fL CALC (80.0-100.0); MEAN CORPUSCULAR HGB 29.8 pG CALC (26.0-32.0); MEAN CORPUSCULAR HGB CONC 32.4 g/dL CAL (32.0-36.0); MONO% 9.6 % (2-13); NEUT# 8.3 thou/uL (2.00-7.15); NEUT% 60.7 % (42-76); RED BLOOD COUNT 3.46 mill/uL (4.20-5.60); RED CELL DISTRI WIDTH 13.6 % (11.5-15.5)
[2022-11-07 05:34] LABS: ALBUMIN 1.6 g/dL (3.2-5.0); ALKALINE PHOSPHATASE 101 u/l (38-126); ANION GAP 2 (6-22 (CALC)); BILIRUBIN, TOTAL 0.4 mg/dL (0.02-1.3); BUN 3 mg/dL (8-23); BUN/CREATININE RATIO 5 (12-20 (CALC)); CARBON DIOXIDE 32 mmol/l (22-30); CHLORIDE 96 mmol/l (95-108); CREATININE 0.6 mg/dL (0.5-1.0); GFR FOR AFR.AMER. > 60 ML/MIN (>=60 (CALC)); GFR OTHER RACES > 60 ML/MIN (>=60 (CALC)); POTASSIUM 2.7 mmol/l (3.5-5.1); SGOT/AST 17 u/l (9-36); SODIUM 127 mmol/l (137-146); TOTAL PROTEIN 3.7 g/dL (6.3-8.2)
[2022-11-07 08:07] VITALS: BP 126/63; BP 162/63
[2022-11-07 12:40] VITALS: BP 117/59
[2022-11-07 16:10] VITALS: BP 112/55
[2022-11-07 20:13] VITALS: BP 111/50
[2022-11-08 06:25] VITALS: BP 113/43
[2022-11-08 08:03] LABS: ALBUMIN 1.7 g/dL (3.2-5.0); ALKALINE PHOSPHATASE 92 u/l (38-126); ANION GAP 6 (6-22 (CALC)); BILIRUBIN, TOTAL 0.4 mg/dL (0.02-1.3); CARBON DIOXIDE 28 mmol/l (22-30); CHLORIDE 99 mmol/l (95-108); CREATININE 0.5 mg/dL (0.5-1.0); GFR FOR AFR.AMER. > 60 ML/MIN (>=60 (CALC)); GFR OTHER RACES > 60 ML/MIN (>=60 (CALC)); POTASSIUM 2.9 mmol/l (3.5-5.1); SGOT/AST 17 u/l (9-36); SODIUM 130 mmol/l (137-146); TOTAL PROTEIN 4.2 g/dL (6.3-8.2)
[2022-11-08 08:06] LABS: BUN < 2 mg/dL (8-23)
[2022-11-08 08:49] LABS: BASO% 0.4 % (0-3); EOS% 6.9 % (0-8); HEMATOCRIT 34.2 % (37.0-47.0); HEMOGLOBIN 11.1 g/dl (12.0-16.0); IMMATURE GRANULOCYTES 0.5 % (0.0-5.0); LYMPH% 23.4 % (15-41); MEAN CELL VOLUME 92.4 fL CALC (80.0-100.0); MEAN CORPUSCULAR HGB CONC 32.5 g/dL CAL (32.0-36.0); MONO% 9.3 % (2-13); NEUT# 6.07 thou/uL (2.00-7.15); NEUT% 59.5 % (42-76); RED BLOOD COUNT 3.7 mill/uL (4.20-5.60); RED CELL DISTRI WIDTH 13.7 % (11.5-15.5)
[2022-11-08 11:03] VITALS: BP 121/53
[2022-11-08 16:00] VITALS: BP 116/59
[2022-11-08 19:28] VITALS: BP 144/67
[2022-11-09] VITALS (7 sets, daily range): BP systolic 136–148; BP diastolic 67–77
[2022-11-09 04:58] LABS: BASO% 0.4 % (0-3); EOS% 8.4 % (0-8); HEMATOCRIT 32.9 % (37.0-47.0); HEMOGLOBIN 10.7 g/dl (12.0-16.0); IMMATURE GRANULOCYTES 0.6 % (0.0-5.0); LYMPH% 25.7 % (15-41); MEAN CELL VOLUME 91.9 fL CALC (80.0-100.0); MEAN CORPUSCULAR HGB 29.9 pG CALC (26.0-32.0); MEAN CORPUSCULAR HGB CONC 32.5 g/dL CAL (32.0-36.0); MONO% 10.6 % (2-13); NEUT# 5.86 thou/uL (2.00-7.15); NEUT% 54.3 % (42-76); RED BLOOD COUNT 3.58 mill/uL (4.20-5.60)
[2022-11-09 05:10] LABS: ALBUMIN 1.9 g/dL (3.2-5.0); ALKALINE PHOSPHATASE 110 u/l (38-126); ANION GAP 7 (6-22 (CALC)); BILIRUBIN, TOTAL 0.3 mg/dL (0.02-1.3); BUN 2 mg/dL (8-23); BUN/CREATININE RATIO 3 (12-20 (CALC)); CARBON DIOXIDE 26 mmol/l (22-30); CHLORIDE 102 mmol/l (95-108); CREATININE 0.6 mg/dL (0.5-1.0); GFR FOR AFR.AMER. > 60 ML/MIN (>=60 (CALC)); GFR OTHER RACES > 60 ML/MIN (>=60 (CALC)); MAGNESIUM 1.7 mg/dL (1.6-2.3); POTASSIUM 3.4 mmol/l (3.5-5.1); SGOT/AST 18 u/l (9-36); SODIUM 131 mmol/l (137-146); TOTAL PROTEIN 4.2 g/dL (6.3-8.2)
[2022-11-09] MEDS ORDERED: VANCOMYCIN HCL125 M1 PO (12:21)
== END 2022-11-09 18:17 | DRG 872 ==
LOC: ED 13:31 → MS2 18:22
PROVIDERS: Family Medicine; Nurse Practitioner Family; ADMIT Internal Medicine; ATTEND Internal Medicine
PROC: 0T2BX0Z Change Drainage Device in Bladder, External Approach (ICD-10-PCS; principal; 2022-11-02)
DX: A41.9 Sepsis, unspecified organism (principal); L03.115 Cellulitis of right lower limb; A04.72 Enterocolitis due to Clostridium difficile, not specified as recurrent; E87.1 Hypo-osmolality and hyponatremia; N39.0 Urinary tract infection, site not specified; I10 Essential (primary) hypertension; E11.9 Type 2 diabetes mellitus without complications; T83.031A Leakage of indwelling urethral catheter, initial encounter; E78.5 Hyperlipidemia, unspecified; E87.6 Hypokalemia; E83.42 Hypomagnesemia; M62.40 Contracture of muscle, unspecified site; I69.30 Unspecified sequelae of cerebral infarction; M21.372 Foot drop, left foot; M21.371 Foot drop, right foot; I89.0 Lymphedema, not elsewhere classified; Y84.6 Urinary catheterization as the cause of abnormal reaction of the patient, or of later complication, without mention of misadventure at the time of the procedure; Z74.01 Bed confinement status; Z96.0 Presence of urogenital implants; Z59.89 Other problems related to housing and economic circumstances; Z22.39 Carrier of other specified bacterial diseases
CPT/HCPCS: J3370; J3475; Q3014

== ENCOUNTER 2022-12-29 09:27 | Inpatient (IN) | payer MEDICARE, MEDICAID ==
[2022-12-29] VITALS (30 sets, daily range): BP systolic 101–136; BP diastolic 51–101
[~2022-12-29] VITALS: Ht 154.9 cm; Wt 77.0 kg
[~2022-12-29 09:27] MED LIST changes: +MELATONIN3 M1 PO; +VANCOMYCIN HCL125 M1 PO
[2022-12-29 10:43] LABS: BASO% 0.5 % (0-3); EOS% 4.4 % (0-8); HEMATOCRIT 38.3 % (37.0-47.0); IMMATURE GRANULOCYTES 0.4 % (0.0-5.0); LYMPH% 13.8 % (15-41); MEAN CELL VOLUME 89.7 fL CALC (80.0-100.0); MEAN CORPUSCULAR HGB CONC 33.4 g/dL CAL (32.0-36.0); MONO% 7.3 % (2-13); NEUT# 5.75 thou/uL (2.00-7.15); NEUT% 73.6 % (42-76); RED BLOOD COUNT 4.27 mill/uL (4.20-5.60); RED CELL DISTRI WIDTH 14.5 % (11.5-15.5)
[2022-12-29 10:45] LABS: URINE BILIRUBIN - DIPSTICK Negative (NEGATIVE); URINE BLOOD DIPSTICK Small (NEGATIVE); URINE GLUCOSE - DIPSTICK Negative (NEGATIVE); URINE KETONE Negative (NEGATIVE); URINE NITRITE - DIPSTICK Positive (Negative); URINE PROTEIN - DIPSTICK 100 mg/dL (NEG-TRACE); URINE SPECIFIC GRAVITY 1.015; URINE UROBILINOGEN - DIPSTICK 0.2 E.U./dL (0.2)
[2022-12-29 10:46] LABS: URINE COLOR Yellow; URINE LEUK ESTERASE Large (NEGATIVE)
[2022-12-29 10:53] LABS: URINE BACTERIA MANY hpf; URINE YEAST MANY hpf
[2022-12-29 10:58] LABS: ALKALINE PHOSPHATASE 140 u/l (38-126); BUN 3 mg/dL (8-23); BUN/CREATININE RATIO 6 (12-20 (CALC)); CREATININE 0.5 mg/dL (0.5-1.0); GFR FOR AFR.AMER. > 60 ML/MIN (>=60 (CALC)); GFR OTHER RACES > 60 ML/MIN (>=60 (CALC))
[2022-12-29 11:00] LABS: ALBUMIN 2.9 g/dL (3.2-5.0); ANION GAP 6 (6-22 (CALC)); BILIRUBIN, TOTAL 1.1 mg/dL (0.02-1.3); CARBON DIOXIDE 35 mmol/l (22-30); CHLORIDE 84 mmol/l (95-108); POTASSIUM 2.7 mmol/l (3.5-5.1); SGOT/AST 44 u/l (9-36); SODIUM 122 mmol/l (137-146)
[2022-12-29 11:01] LABS: HEMOGLOBIN 12.8 g/dl (12.0-16.0)
[2022-12-29] MEDS ORDERED: AMLODIPINE BESYL5 MG PO (16:21)
[2022-12-30] VITALS (7 sets, daily range): BP systolic 113–133; BP diastolic 50–67
[2022-12-30 05:32] LABS: BASO% 0.5 % (0-3); EOS% 3.1 % (0-8); HEMATOCRIT 33.9 % (37.0-47.0); HEMOGLOBIN 11.9 g/dl (12.0-16.0); IMMATURE GRANULOCYTES 0.2 % (0.0-5.0); LYMPH% 14.5 % (15-41); MEAN CELL VOLUME 89.7 fL CALC (80.0-100.0); MEAN CORPUSCULAR HGB 31.5 pG CALC (26.0-32.0); MEAN CORPUSCULAR HGB CONC 35.1 g/dL CAL (32.0-36.0); MONO% 10.3 % (2-13); NEUT# 6.23 thou/uL (2.00-7.15); NEUT% 71.4 % (42-76); RED BLOOD COUNT 3.78 mill/uL (4.20-5.60); RED CELL DISTRI WIDTH 14.7 % (11.5-15.5)
[2022-12-30 05:41] LABS: ALBUMIN 2.6 g/dL (3.2-5.0); ALKALINE PHOSPHATASE 133 u/l (38-126); ANION GAP 6 (6-22 (CALC)); BILIRUBIN, TOTAL 1.2 mg/dL (0.02-1.3); BUN 3 mg/dL (8-23); BUN/CREATININE RATIO 7 (12-20 (CALC)); CARBON DIOXIDE 32 mmol/l (22-30); CHLORIDE 90 mmol/l (95-108); CREATININE 0.4 mg/dL (0.5-1.0); GFR FOR AFR.AMER. > 60 ML/MIN (>=60 (CALC)); GFR OTHER RACES > 60 ML/MIN (>=60 (CALC)); MAGNESIUM 1.4 mg/dL (1.6-2.3); SGOT/AST 31 u/l (9-36); SODIUM 124 mmol/l (137-146); TOTAL PROTEIN 5.4 g/dL (6.3-8.2)
[2022-12-30 05:48] LABS: POTASSIUM 3.6 mmol/l (3.5-5.1)
[2022-12-31 00:35] VITALS: BP 133/68
[2022-12-31 05:09] VITALS: BP 112/76
[2022-12-31 05:22] LABS: BASO% 0.4 % (0-3); EOS% 9.9 % (0-8); HEMATOCRIT 32.5 % (37.0-47.0); HEMOGLOBIN 11.1 g/dl (12.0-16.0); IMMATURE GRANULOCYTES 0.1 % (0.0-5.0); LYMPH% 18.5 % (15-41); MEAN CELL VOLUME 90.3 fL CALC (80.0-100.0); MEAN CORPUSCULAR HGB 30.8 pG CALC (26.0-32.0); MEAN CORPUSCULAR HGB CONC 34.2 g/dL CAL (32.0-36.0); MONO% 10.5 % (2-13); NEUT# 4.16 thou/uL (2.00-7.15); NEUT% 60.6 % (42-76); RED BLOOD COUNT 3.6 mill/uL (4.20-5.60); RED CELL DISTRI WIDTH 14.9 % (11.5-15.5)
[2022-12-31 05:45] LABS: ALBUMIN 2.4 g/dL (3.2-5.0); ALKALINE PHOSPHATASE 127 u/l (38-126); ANION GAP 5 (6-22 (CALC)); BILIRUBIN, TOTAL 0.8 mg/dL (0.02-1.3); BUN 2 mg/dL (8-23); BUN/CREATININE RATIO 6 (12-20 (CALC)); CARBON DIOXIDE 33 mmol/l (22-30); CHLORIDE 90 mmol/l (95-108); CREATININE 0.4 mg/dL (0.5-1.0); GFR FOR AFR.AMER. > 60 ML/MIN (>=60 (CALC)); GFR OTHER RACES > 60 ML/MIN (>=60 (CALC)); POTASSIUM 3.5 mmol/l (3.5-5.1); SGOT/AST 29 u/l (9-36); SODIUM 124 mmol/l (137-146); TOTAL PROTEIN 5.3 g/dL (6.3-8.2)
[2022-12-31 06:35] VITALS: BP 123/62
[2022-12-31 10:15] VITALS: BP 118/63
[2022-12-31 14:50] VITALS: BP 142/63
[2022-12-31 19:56] VITALS: BP 110/58
[2023-01-01 00:15] VITALS: BP 143/67
[2023-01-01 04:33] VITALS: BP 131/70
[2023-01-01 05:27] LABS: BASO% 0.2 % (0-3); HEMATOCRIT 33.3 % (37.0-47.0); HEMOGLOBIN 11.5 g/dl (12.0-16.0); IMMATURE GRANULOCYTES 0.2 % (0.0-5.0); LYMPH% 11.8 % (15-41); MEAN CELL VOLUME 90.2 fL CALC (80.0-100.0); MEAN CORPUSCULAR HGB 31.2 pG CALC (26.0-32.0); MEAN CORPUSCULAR HGB CONC 34.5 g/dL CAL (32.0-36.0); NEUT# 3.59 thou/uL (2.00-7.15); NEUT% 86.8 % (42-76); RED BLOOD COUNT 3.69 mill/uL (4.20-5.60); RED CELL DISTRI WIDTH 14.9 % (11.5-15.5)
[2023-01-01 05:39] LABS: ALBUMIN 2.5 g/dL (3.2-5.0); ALKALINE PHOSPHATASE 125 u/l (38-126); ANION GAP 6 (6-22 (CALC)); BILIRUBIN, TOTAL 0.6 mg/dL (0.02-1.3); BUN 5 mg/dL (8-23); BUN/CREATININE RATIO 12 (12-20 (CALC)); CARBON DIOXIDE 31 mmol/l (22-30); CHLORIDE 90 mmol/l (95-108); CREATININE 0.5 mg/dL (0.5-1.0); GFR FOR AFR.AMER. > 60 ML/MIN (>=60 (CALC)); GFR OTHER RACES > 60 ML/MIN (>=60 (CALC)); MAGNESIUM 1.7 mg/dL (1.6-2.3); SGOT/AST 29 u/l (9-36); SODIUM 122 mmol/l (137-146); TOTAL PROTEIN 5.2 g/dL (6.3-8.2)
[2023-01-01 05:43] LABS: POTASSIUM 4.5 mmol/l (3.5-5.1)
[2023-01-01 12:05] VITALS: BP 126/72
[2023-01-01 19:49] VITALS: BP 106/51
[2023-01-02 00:06] VITALS: BP 117/55
[2023-01-02 04:48] VITALS: BP 97/74
[2023-01-02 06:44] LABS: HEMATOCRIT 32.9 % (37.0-47.0); HEMOGLOBIN 11.5 g/dl (12.0-16.0); MEAN CELL VOLUME 88.2 fL CALC (80.0-100.0); MEAN CORPUSCULAR HGB 30.8 pG CALC (26.0-32.0); RED BLOOD COUNT 3.73 mill/uL (4.20-5.60)
[2023-01-02 06:51] LABS: ALBUMIN 2.7 g/dL (3.2-5.0); ALKALINE PHOSPHATASE 129 u/l (38-126); ANION GAP 10 (6-22 (CALC)); BILIRUBIN, TOTAL 0.5 mg/dL (0.02-1.3); BUN 8 mg/dL (8-23); BUN/CREATININE RATIO 12 (12-20 (CALC)); CARBON DIOXIDE 28 mmol/l (22-30); CHLORIDE 90 mmol/l (95-108); CREATININE 0.7 mg/dL (0.5-1.0); GFR FOR AFR.AMER. > 60 ML/MIN (>=60 (CALC)); GFR OTHER RACES > 60 ML/MIN (>=60 (CALC)); MAGNESIUM 1.6 mg/dL (1.6-2.3); POTASSIUM 4.7 mmol/l (3.5-5.1); SGOT/AST 31 u/l (9-36); SODIUM 122 mmol/l (137-146); TOTAL PROTEIN 5.5 g/dL (6.3-8.2)
[2023-01-02 07:28] VITALS: BP 118/45
[2023-01-02 10:15] VITALS: BP 129/59
[2023-01-02 15:30] VITALS: BP 108/50
[2023-01-02 19:24] VITALS: BP 117/70
[2023-01-03] VITALS (62 sets, daily range): BP systolic 102–147; BP diastolic 56–85
[2023-01-03 06:16] LABS: HEMOGLOBIN 11.6 g/dl (12.0-16.0); MEAN CELL VOLUME 88.5 fL CALC (80.0-100.0); MEAN CORPUSCULAR HGB 30.2 pG CALC (26.0-32.0); MEAN CORPUSCULAR HGB CONC 34.1 g/dL CAL (32.0-36.0); RED BLOOD COUNT 3.84 mill/uL (4.20-5.60); RED CELL DISTRI WIDTH 14.8 % (11.5-15.5)
[2023-01-03 06:30] LABS: ALBUMIN 2.6 g/dL (3.2-5.0); ALKALINE PHOSPHATASE 108 u/l (38-126); ANION GAP 9 (6-22 (CALC)); BILIRUBIN, TOTAL 0.4 mg/dL (0.02-1.3); BUN 10 mg/dL (8-23); BUN/CREATININE RATIO 15 (12-20 (CALC)); CARBON DIOXIDE 28 mmol/l (22-30); CHLORIDE 89 mmol/l (95-108); CREATININE 0.7 mg/dL (0.5-1.0); GFR FOR AFR.AMER. > 60 ML/MIN (>=60 (CALC)); GFR OTHER RACES > 60 ML/MIN (>=60 (CALC)); MAGNESIUM 1.5 mg/dL (1.6-2.3); SGOT/AST 39 u/l (9-36); SODIUM 122 mmol/l (137-146); TOTAL PROTEIN 5.3 g/dL (6.3-8.2)
[2023-01-04] VITALS (59 sets, daily range): BP systolic 97–157; BP diastolic 48–94
[2023-01-04] MEDS ORDERED: METOPROL TAR25 MG PO (12:42)
== END 2023-01-04 15:38 | disposition home health service (06) | DRG 309 ==
LOC: ED 09:27 → ED-I 13:18 → ED 13:32 → MS2 13:33 → ICU 01-03 08:26 → MS2 01-03 08:26 → ICU 01-03 08:27
PROVIDERS: Family Medicine; Nurse Practitioner Family; ADMIT Student in an Organized Health Care Education/Training Program; ATTEND Student in an Organized Health Care Education/Training Program
PROC: 0T2BX0Z Change Drainage Device in Bladder, External Approach (ICD-10-PCS; principal; 2022-12-29)
DX: I49.1 Atrial premature depolarization (principal); B37.49 Other urogenital candidiasis; E87.1 Hypo-osmolality and hyponatremia; L03.115 Cellulitis of right lower limb; E87.6 Hypokalemia; L89.159 Pressure ulcer of sacral region, unspecified stage; I10 Essential (primary) hypertension; E11.9 Type 2 diabetes mellitus without complications; I69.931 Monoplegia of upper limb following unspecified cerebrovascular disease affecting right dominant side; E78.5 Hyperlipidemia, unspecified; Z96.0 Presence of urogenital implants; Z74.01 Bed confinement status; Z87.440 Personal history of urinary (tract) infections; Z60.2 Problems related to living alone
CPT/HCPCS: J3475; Q9967; S0164

== ENCOUNTER 2023-01-20 08:53 | Inpatient (IN) | payer MEDICARE, MEDICAID ==
[2023-01-20] VITALS (22 sets, daily range): BP systolic 88–129; BP diastolic 43–86
[~2023-01-20] VITALS: Ht 154.9 cm; Wt 69.4 kg
[~2023-01-20 08:53] MED LIST changes: +AMLODIPINE BESYL5 MG PO; +METOPROL TAR25 MG PO
[2023-01-20 09:49] LABS: URINE BILIRUBIN - DIPSTICK Negative (NEGATIVE); URINE BLOOD DIPSTICK Moderate (NEGATIVE); URINE GLUCOSE - DIPSTICK Negative (NEGATIVE); URINE KETONE Negative (NEGATIVE); URINE NITRITE - DIPSTICK Negative (Negative); URINE PH 7.5 (4.5-8.0); URINE PROTEIN - DIPSTICK 30 mg/dL (NEG-TRACE); URINE SPECIFIC GRAVITY 1.015; URINE UROBILINOGEN - DIPSTICK 0.2 E.U./dL (0.2)
[2023-01-20 09:50] LABS: URINE COLOR Yellow; URINE LEUK ESTERASE Large (NEGATIVE)
[2023-01-20 09:51] LABS: BASO% 0.1 % (0-3); EOS% 0.1 % (0-8); HEMATOCRIT 38.6 % (37.0-47.0); HEMOGLOBIN 13.4 g/dl (12.0-16.0); IMMATURE GRANULOCYTES 0.3 % (0.0-5.0); LYMPH% 11.2 % (15-41); MEAN CELL VOLUME 86.7 fL CALC (80.0-100.0); MEAN CORPUSCULAR HGB 30.1 pG CALC (26.0-32.0); MEAN CORPUSCULAR HGB CONC 34.7 g/dL CAL (32.0-36.0); MONO% 5.2 % (2-13); NEUT# 10.86 thou/uL (2.00-7.15); NEUT% 83.1 % (42-76); RED BLOOD COUNT 4.45 mill/uL (4.20-5.60); RED CELL DISTRI WIDTH 14.1 % (11.5-15.5)
[2023-01-20 09:51] LABS: URINE WBC 20-50 WBC/hpf (0-5)
[2023-01-20 09:54] LABS: URINE BACTERIA MANY hpf
[2023-01-20 10:20] LABS: ALBUMIN 2.5 g/dL (3.2-5.0); BUN 17 mg/dL (8-23); BUN/CREATININE RATIO 26 (12-20 (CALC)); CARBON DIOXIDE 31 mmol/l (22-30); CHLORIDE 82 mmol/l (95-108); CREATININE 0.7 mg/dL (0.5-1.0); GFR FOR AFR.AMER. > 60 ML/MIN (>=60 (CALC)); GFR OTHER RACES > 60 ML/MIN (>=60 (CALC)); MAGNESIUM 1.5 mg/dL (1.6-2.3); SGOT/AST 42 u/l (9-36); SODIUM 120 mmol/l (137-146); TOTAL PROTEIN 5.3 g/dL (6.3-8.2)
[2023-01-20 10:25] LABS: ALKALINE PHOSPHATASE 172 u/l (38-126); ANION GAP 9 (6-22 (CALC)); BILIRUBIN, TOTAL 1.3 mg/dL (0.02-1.3)
[2023-01-20 10:26] LABS: POTASSIUM 1.7 mmol/l (3.5-5.1)
[2023-01-21] VITALS (7 sets, daily range): BP systolic 104–140; BP diastolic 49–71
[2023-01-21 00:39] LABS: ALBUMIN 2.1 g/dL (3.2-5.0); ALKALINE PHOSPHATASE 167 u/l (38-126); ANION GAP 8 (6-22 (CALC)); BILIRUBIN, TOTAL 1.1 mg/dL (0.02-1.3); BUN 13 mg/dL (8-23); BUN/CREATININE RATIO 22 (12-20 (CALC)); CARBON DIOXIDE 29 mmol/l (22-30); CHLORIDE 86 mmol/l (95-108); CREATININE 0.6 mg/dL (0.5-1.0); GFR FOR AFR.AMER. > 60 ML/MIN (>=60 (CALC)); GFR OTHER RACES > 60 ML/MIN (>=60 (CALC)); SGOT/AST 41 u/l (9-36); SODIUM 120 mmol/l (137-146); TOTAL PROTEIN 4.5 g/dL (6.3-8.2)
[2023-01-21 04:18] LABS: URINE BILIRUBIN - DIPSTICK Negative (NEGATIVE); URINE BLOOD DIPSTICK Trace-lysed (NEGATIVE); URINE GLUCOSE - DIPSTICK Negative (NEGATIVE); URINE KETONE Negative (NEGATIVE); URINE UROBILINOGEN - DIPSTICK 0.2 E.U./dL (0.2)
[2023-01-21 04:19] LABS: URINE COLOR Yellow; URINE LEUK ESTERASE Small (NEGATIVE); URINE NITRITE - DIPSTICK Positive (Negative)
[2023-01-21 04:20] LABS: URINE PROTEIN - DIPSTICK Negative (NEG-TRACE)
[2023-01-21 07:59] LABS: BASO% 0.1 % (0-3); EOS% 0.2 % (0-8); HEMATOCRIT 35.2 % (37.0-47.0); HEMOGLOBIN 12.6 g/dl (12.0-16.0); IMMATURE GRANULOCYTES 0.3 % (0.0-5.0); LYMPH% 15.4 % (15-41); MEAN CELL VOLUME 86.7 fL CALC (80.0-100.0); MEAN CORPUSCULAR HGB CONC 35.8 g/dL CAL (32.0-36.0); MONO% 7.7 % (2-13); NEUT# 8.19 thou/uL (2.00-7.15); NEUT% 76.3 % (42-76); RED BLOOD COUNT 4.06 mill/uL (4.20-5.60)
[2023-01-21 08:11] LABS: ALBUMIN 2.2 g/dL (3.2-5.0); ALKALINE PHOSPHATASE 173 u/l (38-126); ANION GAP 9 (6-22 (CALC)); BILIRUBIN, TOTAL 1.2 mg/dL (0.02-1.3); BUN 10 mg/dL (8-23); BUN/CREATININE RATIO 20 (12-20 (CALC)); CARBON DIOXIDE 26 mmol/l (22-30); CHLORIDE 88 mmol/l (95-108); CREATININE 0.5 mg/dL (0.5-1.0); GFR FOR AFR.AMER. > 60 ML/MIN (>=60 (CALC)); GFR OTHER RACES > 60 ML/MIN (>=60 (CALC)); MAGNESIUM 1.8 mg/dL (1.6-2.3); POTASSIUM 3.1 mmol/l (3.5-5.1); SGOT/AST 46 u/l (9-36); SODIUM 120 mmol/l (137-146); TOTAL PROTEIN 4.7 g/dL (6.3-8.2)
[2023-01-21 15:17] LABS: ALBUMIN 2.1 g/dL (3.2-5.0); ALKALINE PHOSPHATASE 167 u/l (38-126); ANION GAP 7 (6-22 (CALC)); BILIRUBIN, TOTAL 0.9 mg/dL (0.02-1.3); BUN 9 mg/dL (8-23); BUN/CREATININE RATIO 18 (12-20 (CALC)); CARBON DIOXIDE 29 mmol/l (22-30); CHLORIDE 89 mmol/l (95-108); CREATININE 0.5 mg/dL (0.5-1.0); GFR FOR AFR.AMER. > 60 ML/MIN (>=60 (CALC)); GFR OTHER RACES > 60 ML/MIN (>=60 (CALC)); POTASSIUM 3.7 mmol/l (3.5-5.1); SGOT/AST 44 u/l (9-36); SODIUM 121 mmol/l (137-146); TOTAL PROTEIN 4.4 g/dL (6.3-8.2)
[2023-01-22] VITALS (8 sets, daily range): BP systolic 104–154; BP diastolic 49–76
[2023-01-22 06:51] LABS: BASO% 0.2 % (0-3); HEMATOCRIT 29.6 % (37.0-47.0); IMMATURE GRANULOCYTES 0.4 % (0.0-5.0); LYMPH% 28.2 % (15-41); MEAN CELL VOLUME 87.8 fL CALC (80.0-100.0); MEAN CORPUSCULAR HGB 30.6 pG CALC (26.0-32.0); MEAN CORPUSCULAR HGB CONC 34.8 g/dL CAL (32.0-36.0); MONO% 9.6 % (2-13); NEUT# 5.07 thou/uL (2.00-7.15); NEUT% 60.6 % (42-76); RED BLOOD COUNT 3.37 mill/uL (4.20-5.60); RED CELL DISTRI WIDTH 14.4 % (11.5-15.5)
[2023-01-22 07:00] LABS: HEMOGLOBIN 10.3 g/dl (12.0-16.0)
[2023-01-22 07:21] LABS: ALBUMIN 1.9 g/dL (3.2-5.0); ANION GAP 6 (6-22 (CALC)); BILIRUBIN, TOTAL 0.8 mg/dL (0.02-1.3); BUN 8 mg/dL (8-23); BUN/CREATININE RATIO 16 (12-20 (CALC)); CARBON DIOXIDE 29 mmol/l (22-30); CHLORIDE 92 mmol/l (95-108); CREATININE 0.5 mg/dL (0.5-1.0); GFR FOR AFR.AMER. > 60 ML/MIN (>=60 (CALC)); GFR OTHER RACES > 60 ML/MIN (>=60 (CALC)); MAGNESIUM 1.6 mg/dL (1.6-2.3); POTASSIUM 3.4 mmol/l (3.5-5.1); SGOT/AST 40 u/l (9-36); SODIUM 123 mmol/l (137-146); TOTAL PROTEIN 4.1 g/dL (6.3-8.2)
[2023-01-22 07:24] LABS: ALKALINE PHOSPHATASE 282 u/l (38-126)
[2023-01-23] VITALS (7 sets, daily range): BP systolic 105–128; BP diastolic 53–66
[2023-01-23 07:31] LABS: HEMATOCRIT 32.5 % (37.0-47.0); HEMOGLOBIN 10.9 g/dl (12.0-16.0); MEAN CELL VOLUME 89.3 fL CALC (80.0-100.0); MEAN CORPUSCULAR HGB 29.9 pG CALC (26.0-32.0); MEAN CORPUSCULAR HGB CONC 33.5 g/dL CAL (32.0-36.0); RED BLOOD COUNT 3.64 mill/uL (4.20-5.60); RED CELL DISTRI WIDTH 14.9 % (11.5-15.5)
[2023-01-23 07:43] LABS: ALBUMIN 1.8 g/dL (3.2-5.0); ALKALINE PHOSPHATASE 285 u/l (38-126); ANION GAP 4 (6-22 (CALC)); BILIRUBIN, TOTAL 0.7 mg/dL (0.02-1.3); BUN 4 mg/dL (8-23); BUN/CREATININE RATIO 10 (12-20 (CALC)); CARBON DIOXIDE 27 mmol/l (22-30); CHLORIDE 96 mmol/l (95-108); CREATININE 0.4 mg/dL (0.5-1.0); GFR FOR AFR.AMER. > 60 ML/MIN (>=60 (CALC)); GFR OTHER RACES > 60 ML/MIN (>=60 (CALC)); POTASSIUM 3.5 mmol/l (3.5-5.1); SGOT/AST 39 u/l (9-36); SODIUM 124 mmol/l (137-146)
[2023-01-24] VITALS (7 sets, daily range): BP systolic 109–127; BP diastolic 48–80
[2023-01-24 05:03] LABS: HEMATOCRIT 33.4 % (37.0-47.0); HEMOGLOBIN 11.1 g/dl (12.0-16.0); MEAN CELL VOLUME 89.5 fL CALC (80.0-100.0); MEAN CORPUSCULAR HGB 29.8 pG CALC (26.0-32.0); MEAN CORPUSCULAR HGB CONC 33.2 g/dL CAL (32.0-36.0); RED BLOOD COUNT 3.73 mill/uL (4.20-5.60); RED CELL DISTRI WIDTH 15.1 % (11.5-15.5)
[2023-01-24 05:20] LABS: ALBUMIN 2.2 g/dL (3.2-5.0); ALKALINE PHOSPHATASE 869 u/l (38-126); ANION GAP 4 (6-22 (CALC)); BILIRUBIN, TOTAL 0.6 mg/dL (0.02-1.3); BUN 3 mg/dL (8-23); BUN/CREATININE RATIO 7 (12-20 (CALC)); CARBON DIOXIDE 30 mmol/l (22-30); CHLORIDE 96 mmol/l (95-108); CREATININE 0.5 mg/dL (0.5-1.0); GFR FOR AFR.AMER. > 60 ML/MIN (>=60 (CALC)); GFR OTHER RACES > 60 ML/MIN (>=60 (CALC)); MAGNESIUM 1.4 mg/dL (1.6-2.3); POTASSIUM 3.6 mmol/l (3.5-5.1); SGOT/AST 129 u/l (9-36); SODIUM 126 mmol/l (137-146); TOTAL PROTEIN 4.9 g/dL (6.3-8.2)
[2023-01-25 04:17] VITALS: BP 115/54
[2023-01-25 06:12] LABS: BASO% 0.4 % (0-3); EOS% 1.3 % (0-8); HEMATOCRIT 32.6 % (37.0-47.0); HEMOGLOBIN 11.2 g/dl (12.0-16.0); IMMATURE GRANULOCYTES 0.7 % (0.0-5.0); LYMPH% 41.7 % (15-41); MEAN CELL VOLUME 89.1 fL CALC (80.0-100.0); MEAN CORPUSCULAR HGB 30.6 pG CALC (26.0-32.0); MEAN CORPUSCULAR HGB CONC 34.4 g/dL CAL (32.0-36.0); MONO% 10.9 % (2-13); NEUT# 3.19 thou/uL (2.00-7.15); RED BLOOD COUNT 3.66 mill/uL (4.20-5.60); RED CELL DISTRI WIDTH 15.4 % (11.5-15.5)
[2023-01-25 06:58] VITALS: BP 123/54
[2023-01-25 10:39] LABS: ALKALINE PHOSPHATASE 565 u/l (38-126); ANION GAP 5 (6-22 (CALC)); BILIRUBIN, TOTAL 0.5 mg/dL (0.02-1.3); BUN 3 mg/dL (8-23); BUN/CREATININE RATIO 6 (12-20 (CALC)); CARBON DIOXIDE 28 mmol/l (22-30); CHLORIDE 96 mmol/l (95-108); CREATININE 0.4 mg/dL (0.5-1.0); GFR FOR AFR.AMER. > 60 ML/MIN (>=60 (CALC)); GFR OTHER RACES > 60 ML/MIN (>=60 (CALC)); MAGNESIUM 1.7 mg/dL (1.6-2.3); POTASSIUM 3.6 mmol/l (3.5-5.1); SGOT/AST 56 u/l (9-36); SODIUM 126 mmol/l (137-146); TOTAL PROTEIN 4.4 g/dL (6.3-8.2)
[2023-01-25 10:45] VITALS: BP 121/55
[2023-01-25] MEDS ORDERED: URE-NA15 GM PO (11:52)
[2023-01-25] MEDS ORDERED: BOUDREAUXS BUTT EX (11:55)
[2023-01-25] MEDS ORDERED: SOD CHLORIDE1 GM PO (11:55)
[2023-01-25] MEDS ORDERED: (None)125 MG PO (11:58)
== END 2023-01-25 14:40 | disposition home health service (06) | DRG 372 ==
LOC: ED 08:53 → MS2 12:44
PROVIDERS: Family Medicine; Nurse Practitioner Family; ADMIT Student in an Organized Health Care Education/Training Program; ATTEND Student in an Organized Health Care Education/Training Program
PROC: 0T2BX0Z Change Drainage Device in Bladder, External Approach (ICD-10-PCS; principal; 2023-01-20)
DX: A04.72 Enterocolitis due to Clostridium difficile, not specified as recurrent (principal); E87.1 Hypo-osmolality and hyponatremia; E87.6 Hypokalemia; L89.322 Pressure ulcer of left buttock, stage 2; L89.312 Pressure ulcer of right buttock, stage 2; E83.42 Hypomagnesemia; I10 Essential (primary) hypertension; E11.9 Type 2 diabetes mellitus without complications; D64.9 Anemia, unspecified; I69.90 Unspecified sequelae of unspecified cerebrovascular disease; I95.9 Hypotension, unspecified; R82.71 Bacteriuria; R79.89 Other specified abnormal findings of blood chemistry; I49.1 Atrial premature depolarization; E78.5 Hyperlipidemia, unspecified; Z74.01 Bed confinement status; Z96.0 Presence of urogenital implants; Z20.822 Contact with and (suspected) exposure to COVID-19; Z87.440 Personal history of urinary (tract) infections
CPT/HCPCS: J1160; J3475